=== PATIENT | male | born 1940 | race Caucasian/White ===

== ENCOUNTER 2024-12-09 11:41 | Emergency (ER) | payer MEDICARE ==
[2024-12-09 11:51] VITALS: TEMP 98
--- NOTE | 2024-12-09 12:28 | ED ---
Fall HPI - General Chief Complaint: Fall Stated Complaint: Fall, numbness in leg Time Seen by Provider: 12/09/24 12:22 Source: patient, RN notes reviewed Mode of arrival: ambulatory - History of Present Illness Initial Comments: 84-year-old male presenting for trip and fall 13 hours ago. States last night around 11 PM took his nighttime gummy and Tylenol PM and turn the lights off. He then accidentally tripped and fell onto the ground. States he did bump the back of his head on the ground. Denies loss of consciousness. He is on Plavix. States he got up and proceeded to take a shower after the fall. States he woke up this morning and is having soreness in the left knee and numbness/tingling in the left foot. He is able to ambulate. Denies headache, vision changes, nausea vomiting, neck pain, chest pain, shortness of breath, abdominal pain, back pain. - Related Data Allergies Allergy/AdvReac Type Severity Reaction Status Date / Time No Known Allergies Allergy Verified 12/09/24 11:51 Review of Systems ROS Statement: Those systems with pertinent positive or pertinent negative responses have been documented in the HPI. ROS Other: All systems not noted in ROS Statement are negative. Past Medical History Past Medical History: Hypertension History of Any Multi-Drug Resistant Organisms: None Reported Additional Past Surgical History / Comment(s): tripple bypass, Past Psychological History: No Psychological Hx Reported Smoking Status: Never smoker Past Alcohol Use History: Occasional Past Drug Use History: Marijuana General Exam Limitations: no limitations General appearance: alert, in no apparent distress Head exam: Present: normocephalic. Absent: atraumatic (Mild contusion to the posterior portion of the head, no hematomas or palpable skull fracture), normal inspection Eye exam: Present: normal appearance, PERRL, EOMI. Absent: scleral icterus, conjunctival injection, periorbital swelling ENT exam: Present: normal exam, mucous membranes moist Neck exam: Present: normal inspection. Absent: tenderness, meningismus, lymphadenopathy Respiratory exam: Present: normal lung sounds bilaterally. Absent: respiratory distress, wheezes, rales, rhonchi, stridor Cardiovascular Exam: Present: regular rate, normal rhythm, normal heart sounds. Absent: systolic murmur, diastolic murmur, rubs, gallop, clicks GI/Abdominal exam: Present: soft, normal bowel sounds. Absent: distended, tenderness, guarding, rebound, rigid Left Hip exam: Present: normal inspection, full ROM. Absent: tenderness, swelling Upper Leg exam: Present: normal inspection, full ROM. Absent: tenderness, swelling Knee exam: Present: normal inspection, full ROM. Absent: tenderness, swelling Lower Leg exam: Present: normal inspection, full ROM. Absent: tenderness, swelling Ankle exam: Present: normal inspection, full ROM. Absent: tenderness, swelling Foot/Toe exam: Present: normal inspection, full ROM. Absent: tenderness, swelling Neurovascular tendon exam: Present: no vascular compromise. Absent: pulse deficit, abnormal cap refill, sensory deficit Back exam: Present: normal inspection, full ROM. Absent: tenderness, paraspinal tenderness, vertebral tenderness Neurological exam: Present: alert, oriented X3 Psychiatric exam: Present: normal affect, normal mood Skin exam: Present: warm, dry, intact, normal color. Absent: rash Course Vital Signs 12/09/24 11:44 Temperature 98.0 F Pulse Rate 62 Respiratory 18 Rate Blood Pressure 144/55 O2 Sat by Pulse 98 Oximetry Medical Decision Making - Medical Decision Making Was pt. sent in by a medical professional or institution (, PA, PVC LOADER, urgent care, hospital, or senior care...) When possible be specific @ -No Did you speak to anyone other than the patient for history (EMS, parent, family, police, friend...)? What history was obtained from this source @ -No Did you review nursing and triage notes (agree or disagree)? Why? @ -I reviewed and agree with nursing and triage notes Were old charts reviewed (outside hosp., previous admission, EMS record, old EKG, old radiological studies, urgent care reports/EKG's, senior care records)? Report findings @ -No old charts were reviewed Differential Diagnosis (chest pain, altered mental status, abdominal pain women, abdominal pain men, vaginal bleeding, weakness, fever, dyspnea, syncope, headache, dizziness, GI bleed, back pain, seizure, CVA, palpatations, mental health, musculoskeletal)? @ -Differential Musculoskeletal Muscular strain, contusion, ligament sprain, fracture, arthritis, septic arthritis, bursitis, cellulitis, muscle spasm, nerve compression, DVT, arterial occlusion, herpes zoster, electrolyte abnormality, tumor.... This is not meant to be in all inclusive list EKG interpreted by me (3pts min.). @ -None X-rays interpreted by me (1pt min.). @ -X-ray left knee and left ankle reveal no acute osseous abnormality, chest x- ray reveals small bilateral pleural effusions CT interpreted by me (1pt min.). @ -CT brain and C-spine revealed no acute intracranial process U/S interpreted by me (1pt. min.). @ -None done What testing was considered but not performed or refused? (CT, X-rays, U/S, labs)? Why? @ -None What meds were considered but not given or refused? Why? @ -None Did you discuss the management of the patient with other professionals (professionals i.e. , PA, PVC LOADER, lab, RT, psych nurse, social secretary, welder production line combination, teacher, light armored vehicle officer, director of casework)? Give summary @ -I was contacted by CT who report they noticed a pleural effusion while taking CT brain and C-spine, chest x-ray was added on at this time Was smoking cessation discussed for >3mins.? @ -No Was critical care preformed (if so, how long)? @ -No Were there social determinants of health that impacted care today? How? (Homelessness, low income, unemployed, alcoholism, drug addiction, transportation, low edu. Level, literacy, decrease access to med. care, half-way, rehab)? @ -No Was there de-escalation of care discussed even if they declined (Discuss DNR or withdrawal of care, Hospice)? DNR status @ -No What co-morbidities impacted this encounter? (DM, HTN, Smoking, COPD, CAD, Cancer, CVA, ARF, Chemo, Hep., AIDS, mental health diagnosis, sleep apnea, morbid obesity)? @ -None Was patient admitted / discharged? Hospital course, mention meds given and route, prescriptions, significant lab abnormalities, going to OR and other pertinent info. @ -Discharge. 84-year-old male presenting for mechanical fall 13 hours ago with head injury. Denies loss of consciousness. He is on Plavix. Endorses left knee and left foot pain. Able to ambulate. Neurovascularly intact. No red flag symptoms. Neurological examination unremarkable. CT brain and C-spine shows no acute abnormality, x-ray left knee and left ankle shows no acute process. I was contacted by CT who reports they noticed a pleural effusion while taking CT brain and C-spine, chest x-ray was added on this time however patient denies any chest pain or shortness of breath. He did undergo open heart surgery 6 weeks ago at [facility]. Chest x-ray did show small bilateral pleural effusions. Discussed results with patient. Patient can be safely discharged home with appropriate return precautions. Advised to follow-up with his heart doctor tomorrow for follow-up regarding the pleural effusion. Patient is agreeable to plan. Case was discussed with my ED attending Dr. Aden. Undiagnosed new problem with uncertain prognosis? @ -No Drug Therapy requiring intensive monitoring for toxicity (Heparin, Nitro, Insulin, Cardizem)? @ -No Were any procedures done? @ -No Diagnosis/symptom? @ -Left knee strain, fall Acute, or Chronic, or Acute on Chronic? @ -Default Uncomplicated (without systemic symptoms) or Complicated (systemic symptoms)? @ -Default Side effects of treatment? @ -No Exacerbation, Progression, or Severe Exacerbation? @ -No Poses a threat to life or bodily function? How? (Chest pain, [place], [place], pneumonia, PE, COPD, DKA, ARF, appy, cholecystitis, CVA, Diverticulitis, Homicidal, Suicidal, threat to staff... and all critical care pts) @ -Not at this time Disposition Clinical Impression: Fall, Strain of left knee Disposition: HOME SELF-CARE Condition: Stable Instructions (If sedation given, give patient instructions): Fall Prevention for Older Adults (ED) Additional Instructions: Follow-up with your heart doctor tomorrow regarding pleural effusion (fluid on lung). Rest, elevate, and ice the left knee and ankle. Please return to the Emergency Department if symptoms worsen or any other concerns. Is patient prescribed a controlled substance at d/c from ED?: No Referrals: Chandrakant Sutton MD [Primary Care Provider] - 1-2 days Time of Disposition: 14:20
--- NOTE | 2024-12-09 13:53 | XR ---
EXAMINATION TYPE: XR chest 2V DATE OF EXAM: 12/09/2024 1:47 PM COMPARISON: None CLINICAL INDICATION: Male, 84 years old with history of cough; [facility] TECHNIQUE: XR chest 2V Frontal and lateral views of the chest. FINDINGS: Lungs/Pleura: No evidence of focal consolidation or pneumothorax. Blunting of the costophrenic angles is present. Pulmonary vascularity: Unremarkable. Heart/mediastinum: Cardiomediastinal silhouette is unremarkable. Musculoskeletal: No acute osseous pathology. IMPRESSION: Small bilateral pleural effusion. [facility], , 12/09/2024 1:51 PM
--- NOTE | 2024-12-09 13:56 | CT ---
EXAMINATION TYPE: CT brain cspine wo con DATE OF EXAM: 12/09/2024 1:37 PM COMPARISON: None. CLINICAL INDICATION: Male, 84 years old with history of pain; FELL LAST NIGHT, pain TECHNIQUE: Brain: Multiple axial CT images of the brain were obtained without IV contrast. Cspine: Axial CT images from the skull base to the inferior aspect of T2 we obtained without intraven ous contrast. Coronal and sagittal reformatted images were also reviewed. . CT DLP: 1446 mGycm, Automated exposure control for dose reduction was used. FINDINGS: Brain: Extra-axial spaces: No abnormal extra-axial fluid collections. Ventricular system: Dilatation in proportion to cerebral atrophy. Cerebral parenchyma: Cerebral atrophy. No acute intraparenchymal hemorrhage or mass effect. The noriega -white junction is well differentiated. Scattered hypoattenuating areas are seen within the white mat ter. Cerebellum: Unremarkable. Mass effect: No evidence of midline shift. Intracranial vasculature: Atherosclerotic calcifications of the intracranial vessels. Soft tissues: Normal. Calvarium/osseous structures: No depressed skull fracture. Paranasal sinuses and mastoid air cells: Few opacified left mastoid air cells. Mild paranasal sinus d isease worse in the left maxillary sinus with retention cyst. Visualized orbits: Bilateral aphakia Cervical spine: Fracture: None. Osseous structures: Unremarkable Vertebral alignment: Within normal limits. Spinal canal/Neural Foramina: No evidence of significant spinal canal narrowing. No evidence for sign ificant neural foraminal stenosis. Neck soft tissues: Prevertebral soft tissues are within normal limits. Other: The airway is patent. Large left pleural effusion. IMPRESSION: 1. No acute intracranial process. 2. Nonspecific white matter changes, likely secondary to chronic small vessel ischemic disease. 3. No evidence of cervical spine fracture. 4. Mild multilevel degenerative disc disease. 5. Large left pleural effusion. 6. Trace left mastoid air cell effusion. [facility], , 12/09/2024 1:54 PM
--- NOTE | 2024-12-09 14:01 | XR ---
EXAMINATION TYPE: XR foot complete LT DATE OF EXAM: 12/09/2024 1:46 PM COMPARISON: None CLINICAL INDICATION: Male, 84 years old with history of left foot injury, pain TECHNIQUE: XR foot complete LT examined in the AP, oblique, and lateral projections. FINDINGS: No evidence of any acute osseous pathology. Degeneration changes of the first digit metatarsophalang eal joint with mild joint space narrowing and osteophyte formation. Soft tissue swelling present. Fusion of the first digit tarsometatarsal joint. Additional fixation hardware appears intact. IMPRESSION: 1. No evidence of acute fracture. 2. Multifocal degeneration changes throughout the joints of the foot. Findings worse at the first di git metatarsophalangeal joint. 3. Post surgical changes with hardware intact. Fusion of the first digit tarsometatarsal joint. [facility], , 12/09/2024 1:59 PM
--- NOTE | 2024-12-09 14:02 | XR ---
EXAMINATION TYPE: XR knee complete LT DATE OF EXAM: 12/09/2024 1:46 PM COMPARISON: None CLINICAL INDICATION: Male, 84 years old with history of left knee injury;, pain TECHNIQUE: XR knee complete LT 3 views submitted. FINDINGS: No evidence of any acute osseous pathology or soft tissue swelling. Tricompartmental oste ophyte formation involving the femoral condyles, tibial plateau and patella. Mild joint space narrowi ng. A fabella is present. Intramedullary priscilla within the tibia appears intact. Prior tibial fracture appears completely healed. I discussed the arterial vasculature. IMPRESSION: 1. No acute osseous pathology. 2. Moderate tricompartmental osteoarthritic changes. 3. Intramedullary priscilla appears intact. 4. Old fibular fracture. [facility], , 12/09/2024 2:00 PM
[2024-12-09 14:47] VITALS: BP 150/69; PULSE 60; RESP 20
== END 2024-12-09 14:47 | disposition home or self-care (01) ==
LOC: EC 11:41
DX: S86.912A Strain of unspecified muscle(s) and tendon(s) at lower leg level, left leg, initial encounter (principal); W01.0XXA Fall on same level from slipping, tripping and stumbling without subsequent striking against object, initial encounter
CPT/HCPCS: 70450; 71046; 72125; 99284

== ENCOUNTER 2024-12-09 19:32 | Inpatient (IN) | payer MEDICARE ==
[2024-12-09] MEDS: DOPamine DRIP 800 MG in DEXTROSE/WATER 1 250ML.BAG IV ONE (19:55)
--- NOTE | 2024-12-09 19:56 | ED ---
Syncope HPI - General Chief Complaint: Syncope Stated Complaint: Syncope Time Seen by Provider: 12/09/24 19:36 Source: EMS, RN notes reviewed, old records reviewed Mode of arrival: EMS Limitations: no limitations - History of Present Illness Initial Comments: This is an 84-year-old male with recurrent syncope here in the ER. Patient has having prolonged periods of asystole during which he passes out. This has happened multiple times first with the at dinner where he passed out brought to the ER EMS states he was doing this throughout and I have not witnessed it twice here myself. Complaint: loss of consciousness, collapsed -: hour(s) -: second(s) Witnessed: yes - by bystander, yes - by EMS History: previous syncopal episode Context: at rest Treatments Prior to Arrival: none - Related Data Home Medications Medication Instructions Recorded Confirmed Clopidogrel [Plavix] 75 mg PO DAILY 12/09/24 12/10/24 Rosuvastatin [Crestor] 20 mg PO HS 12/09/24 12/10/24 Aspirin EC [Ecotrin Low Dose] 81 mg PO HS 12/10/24 12/10/24 Finasteride [Proscar] 5 mg PO HS 12/10/24 12/10/24 Previous Rx's Medication Instructions Recorded Colchicine [Colcrys] 0.6 mg PO DAILY 30 Days #30 each 12/15/24 Furosemide [Lasix] 40 mg PO DAILY 7 Days #7 tab 12/15/24 Potassium Chloride ER [K-Dur 10] 10 meq PO DAILY 7 Days #7 tab 12/15/24 Tamsulosin [Flomax] 0.4 mg PO PC-SUPPER cap 12/15/24 carvediloL [Coreg] 6.25 mg PO BID-W/MEALS 30 Days #60 12/15/24 tab lisinopriL [Zestril] 20 mg PO DAILY 30 Days #30 tab 12/15/24 Allergies Allergy/AdvReac Type Severity Reaction Status Date / Time No Known Allergies Allergy Verified 12/10/24 11:08 Review of Systems ROS Statement: Those systems with pertinent positive or pertinent negative responses have been documented in the HPI. ROS Other: All systems not noted in ROS Statement are negative. Past Medical History Past Medical History: Hypertension History of Any Multi-Drug Resistant Organisms: None Reported Additional Past Surgical History / Comment(s): tripple bypass, Past Psychological History: No Psychological Hx Reported Smoking Status: Never smoker Past Alcohol Use History: Occasional Past Drug Use History: Marijuana General Exam Limitations: no limitations General appearance: alert, in no apparent distress, anxious, in distress Head exam: Present: atraumatic, normocephalic, normal inspection Eye exam: Present: normal appearance, PERRL, EOMI. Absent: scleral icterus, conjunctival injection, periorbital swelling ENT exam: Present: normal exam, mucous membranes moist Neck exam: Present: normal inspection. Absent: tenderness, meningismus, lymphadenopathy Respiratory exam: Present: normal lung sounds bilaterally. Absent: respiratory distress, wheezes, rales, rhonchi, stridor Cardiovascular Exam: Present: regular rate, normal rhythm, normal heart sounds. Absent: systolic murmur, diastolic murmur, rubs, gallop, clicks GI/Abdominal exam: Present: soft, normal bowel sounds. Absent: distended, t enderness, guarding, rebound, rigid Extremities exam: Present: normal inspection, full ROM, normal capillary refill. Absent: tenderness, pedal edema, joint swelling, calf tenderness Back exam: Present: normal inspection Neurological exam: Present: alert, oriented X3, CN II-XII intact Psychiatric exam: Present: normal affect, normal mood Skin exam: Present: warm, dry, intact, normal color. Absent: rash Course Vital Signs 12/09/24 12/09/24 12/09/24 20:05 20:20 20:35 Pulse Rate 93 Pulse Rate [ 72 60 Medical Affairs Manager ] Respiratory 18 18 16 Rate Blood Pressure 151/65 Blood Pressure 152/57 140/47 [Right Arm Supine] O2 Sat by Pulse 97 96 97 Oximetry 12/09/24 12/09/24 12/09/24 20:48 21:05 21:20 Pulse Rate Pulse Rate [ 32 L 66 72 Medical Affairs Manager ] Respiratory 14 16 18 Rate Blood Pressure Blood Pressure 135/54 169/53 156/51 [Right Arm Supine] O2 Sat by Pulse 96 97 94 L Oximetry - Reevaluation(s) Reevaluation #1: Medical records reviewed Reevaluation #2: Patient's symptoms are unchanged, no recurrent syncope no chest pain Reevaluation #3: Patient informed of results questions answered Reevaluation #4: Was pt. sent in by a medical professional or institution (, PA, [facility], urgent care, hospital, or senior care...) When possible be specific @ -no Did you speak to anyone other than the patient for history (EMS, parent, family, police, friend...)? What history was obtained from this source @ -no Did you review nursing and triage notes (agree or disagree)? Why? @ -agree Are old charts reviewed (outside hosp., previous admission, EMS record, old EKG, old radiological studies, urgent care reports/EKG's, senior care records)? Report findings @ -yes Differential Diagnosis (chest pain, altered mental status, abdominal pain women, abdominal pain men, vaginal bleeding, weakness, fever, dyspnea, syncope, headache, dizziness, GI bleed, back pain, seizure, CVA, palpatations, mental health, musculoskeletal)? @ -prior EKG interpreted by me (3pts min.). @ -yes X-rays interpreted by me (1pt min.). @ -no CT interpreted by me (1pt min.). @ -no U/S interpreted by me (1pt. min.). @ -no What testing was considered but not performed or refused? (CT, X-rays, U/S, labs)? Why? @ -none What meds were considered but not given or refused? Why? @ -none Did you discuss the management of the patient with other professionals (professionals i.e. , PA, [employer], lab, RT, psych nurse, family welfare social work professor, rough rounder, teacher, patient safety officer, lining caser)? Give summary @ -no Was smoking cessation discussed for >3mins.? @ -no Was critical care preformed (if so, how long)? @ -yes31 Were there social determinants of health that impacted care today? How? (Homelessness, low income, unemployed, alcoholism, drug addiction, transportation, low edu. Level, literacy, decrease access to med. care, residential, rehab)? @ -none Was there de-escalation of care discussed even if they declined (Discuss DNR or withdrawal of care, Hospice)? DNR status @ -no What co-morbidities impacted this encounter? (DM, HTN, Smoking, COPD, CAD, Cancer, CVA, ARF, Chemo, Hep., AIDS, mental health diagnosis, sleep apnea, morbid obesity)? @ -none Was patient admitted / discharged? Hospital course, mention meds given and route, prescriptions, significant lab abnormalities, going to OR and other pertinent info. @ -84 male to ER for evaluation with syncopal event heart block here in the ER with recurrent rounds of a asystole. Patient admitted for cardiac pacemaker placement Admitted Drug Therapy requiring intensive monitoring for toxicity (Heparin, Nitro, Insulin, Cardizem)? @ -no Were any procedures done? @ -no Diagnosis/symptom? @ -Asystole and syncope Acute, or Chronic, or Acute on Chronic? @ -Acute Uncomplicated (without systemic symptoms) or Complicated (systemic symptoms)? @ -Complicated Side effects of treatment? @ -no Exacerbation, Progression, or Severe Exacerbation? @ -exacerbation Poses a threat to life or bodily function? How? (Chest pain, [place], [place], pneumonia, PE, COPD, DKA, ARF, appy, cholecystitis, CVA, Diverticulitis, Homicidal, Suicidal, threat to staff... and all critical care pts) @ -yes heart block Reevaluation #5: Differential Syncope: Valvular disease, hypertrophic cardiomyopathy, pulmonary embolism, tamponade, tachycardia, bradycardia, [place], hypovolemia, hemorrhage, dissection, anemia, intracranial hemorrhage, seizure, hypoglycemia, carbon monoxide poisoning, this is not meant to be an all-inclusive list. - Consultations Consultation #1: Spoke with admitting physicians who agreed to admit this patient EKG Findings - EKG Comments: EKG Findings:: EKG sinus bradycardia 48 OH 225 QRS 132 QTc 515 - EKG Results: EKG: interpreted by [facility] Medical Decision Making - Lab Data Result diagrams: 12/14/24 07:45 12/14/24 07:45 Lab Results 12/09/24 12/09/24 12/09/24 Range/Units 20:05 20:05 20:05 WBC 10.82 H (4.50-10.00) 10*3/uL RBC 3.51 L (4.40-5.60) 10*6/uL Hgb 11.6 L (13.0-17.0) g/dL Hct 35.1 L (39.6-50.0) % MCV 100.0 H (80.0-97.0) fL MCH 33.0 H (27.0-32.0) pg MCHC 33.0 (32.0-37.0) g/dL Plt Count 159 (140-440) 10*3/uL MPV 10.0 (9.5-12.2) fL Immature Gran % (Auto) 0.3 % Neutrophils % 73.8 % Lymphocytes % 15.9 % Monocytes % 9.2 % Eosinophils % 0.4 % Basophils % 0.4 % Immature Gran # 0.03 (0.00-0.04) 10*3/uL Neutrophils # 7.99 H (1.80-7.70) 10*3/uL Lymphocytes # 1.72 (0.90-5.00) 10*3/uL Monocytes # 1.00 (0.20-1.00) 10*3/uL Eosinophils # 0.04 (0.04-0.35) 10*3/uL Basophils # 0.04 (0.00-0.10) 10*3/uL PT 12.4 (10.0-12.5) sec INR 1.1 (<1.2) APTT 22.1 (22.0-30.0) sec Sodium 141 (137-145) mmol/L Potassium 4.1 (3.5-5.1) mmol/L Chloride 113 H (98-107) mmol/L Carbon Dioxide 18 L (22-30) mmol/L Anion Gap 10 mmol/L BUN 24 H (9-20) mg/dL Creatinine 1.03 (0.66-1.25) mg/dL Est GFR (CKD-EPI)AfAm 77 (>60 ml/min/1.73 sqM) Est GFR (CKD-EPI)NonAf 66 (>60 ml/min/1.73 sqM) Glucose 173 H (74-99) mg/dL Lactic Ac Sepsis Rflx Plasma Lactic Acid Ramos (0.7-2.0) mmol/L Calcium 11.6 H (8.4-10.2) mg/dL Phosphorus 3.7 (2.5-4.5) mg/dL Magnesium 1.9 (1.6-2.3) mg/dL Total Bilirubin 0.9 (0.2-1.3) mg/dL AST 31 (17-59) U/L ALT 28 (4-49) U/L Alkaline Phosphatase 69 (38-126) U/L Troponin I (0.000-0.034) ng/mL NT-Pro-B Natriuret Pep 4030 pg/mL Total Protein 5.5 L (6.3-8.2) g/dL Albumin 3.3 L (3.5-5.0) g/dL TSH 2.440 (0.465-4.680) mIU/L 12/09/24 12/09/24 12/09/24 Range/Units 20:05 20:05 20:46 WBC (4.50-10.00) 10*3/uL RBC (4.40-5.60) 10*6/uL Hgb (13.0-17.0) g/dL Hct (39.6-50.0) % MCV (80.0-97.0) fL MCH (27.0-32.0) pg MCHC (32.0-37.0) g/dL Plt Count (140-440) 10*3/uL MPV (9.5-12.2) fL Immature Gran % (Auto) % Neutrophils % % Lymphocytes % % Monocytes % % Eosinophils % % Basophils % % Immature Gran # (0.00-0.04) 10*3/uL Neutrophils # (1.80-7.70) 10*3/uL Lymphocytes # (0.90-5.00) 10*3/uL Monocytes # (0.20-1.00) 10*3/uL Eosinophils # (0.04-0.35) 10*3/uL Basophils # (0.00-0.10) 10*3/uL PT (10.0-12.5) sec INR (<1.2) APTT (22.0-30.0) sec Sodium (137-145) mmol/L Potassium (3.5-5.1) mmol/L Chloride (98-107) mmol/L Carbon Dioxide (22-30) mmol/L Anion Gap mmol/L BUN (9-20) mg/dL Creatinine (0.66-1.25) mg/dL Est GFR (CKD-EPI)AfAm (>60 ml/min/1.73 sqM) Est GFR (CKD-EPI)NonAf (>60 ml/min/1.73 sqM) Glucose (74-99) mg/dL Lactic Ac Sepsis Rflx Y Plasma Lactic Acid Ramos 4.8 H* (0.7-2.0) mmol/L Calcium (8.4-10.2) mg/dL Phosphorus (2.5-4.5) mg/dL Magnesium (1.6-2.3) mg/dL Total Bilirubin (0.2-1.3) mg/dL AST (17-59) U/L ALT (4-49) U/L Alkaline Phosphatase (38-126) U/L Troponin I 0.253 H* (0.000-0.034) ng/mL NT-Pro-B Natriuret Pep pg/mL Total Protein (6.3-8.2) g/dL Albumin (3.5-5.0) g/dL TSH (0.465-4.680) mIU/L - EKG Data -: EKG Interpreted by Me Critical Care Time Critical Care Time: Yes Total Critical Care Time: 31 Disposition Clinical Impression: NSTEMI (non-ST elevated myocardial infarction), Syncope, Asystole Disposition: ADMITTED IP TO THIS HOSP Condition: Fair Is patient prescribed a controlled substance at d/c from ED?: No Time of Disposition: 21:00
[2024-12-09] MEDS: CALCIUM CHLORIDE 100 MG/ML 10 ML SYRINGE IVP STA (19:57)
[2024-12-09] MEDS: SODIUM CHLORIDE 0.9% 1,000 ML IV SCH ×2 (20:11→23:33)
[2024-12-09] MEDS: ATROPINE SULFATE 0.1 MG/ML 10ML SYRINGE IV STA ×3 (20:15→20:48)
[2024-12-09 20:19] LABS: Basophils # (A) 0.04 10*3/uL (0.00-0.10); Basophils % (A) 0.4 %; Eosinophils # (A) 0.04 10*3/uL (0.04-0.35); Eosinophils % (A) 0.4 %; HCT 35.1 % (39.6-50.0); HGB 11.6 g/dL (13.0-17.0); Lymphocytes # (A) 1.72 10*3/uL (0.90-5.00); Lymphocytes % (A) 15.9 %; MCH 33.0 pg (27.0-32.0); MCHC 33.0 g/dL (32.0-37.0); MCV 100.0 fL (80.0-97.0); Monocytes # (A) 1.00 10*3/uL (0.20-1.00); Monocytes % (A) 9.2 %; Neutrophils # (A) 7.99 10*3/uL (1.80-7.70); Neutrophils % (A) 73.8 %; Platelet Count 159 10*3/uL (140-440); RBC 3.51 10*6/uL (4.40-5.60); RDW 14.3 % (11.5-14.5); WBC 10.82 10*3/uL (4.50-10.00)
[2024-12-09] MEDS: CALCIUM GLUCONATE IN NACL 2 GM in SALINE 1 100ML.BAG IVPB ONE (20:19)
[2024-12-09 20:42] LABS: INR 1.1 (<1.2); Partial Thromboplastin Time 22.1 sec (22.0-30.0); Prothrombin Time 12.4 sec (10.0-12.5)
[2024-12-09 20:47] LABS: ALT 28 U/L (4-49); AST 31 U/L (17-59); African American GFR (CKD) 77 (>60 ml/min/1.73 sqM); Albumin 3.3 g/dL (3.5-5.0); Alkaline Phosphatase 69 U/L (38-126); Anion Gap 10 mmol/L; Blood Urea Nitrogen 24 mg/dL (9-20); Calcium 11.6 mg/dL (8.4-10.2); Carbon Dioxide 18 mmol/L (22-30); Chloride 113 mmol/L (98-107); Glucose 173 mg/dL (74-99); Magnesium 1.9 mg/dL (1.6-2.3); Non-African American GFR(CKD) 66 (>60 ml/min/1.73 sqM); Potassium 4.1 mmol/L (3.5-5.1); Sodium 141 mmol/L (137-145); Total Protein 5.5 g/dL (6.3-8.2)
[2024-12-09 20:54] LABS: NT-Pro-B-Type Natriuretic Pept 4030 pg/mL
[2024-12-09] MEDS ORDERED: NALOXONE 0.4 MG/ML 1 ML VIAL IV PRN (21:13)
[2024-12-09] MEDS: MIDAZOLAM 2 MG/2 ML VIAL IVP ONE (21:57)
[2024-12-09] MEDS: fentaNYL (PF) 50 MCG/1 ML VIAL IVP ONE (21:57)
[2024-12-09] MEDS: LIDOCAINE 1% INJ 10MG/ML (20 ML MDV) SQ ONE (21:59)
[2024-12-09] MEDS: SODIUM CHLORIDE 0.9% 1,000 ML IV ONE (22:00)
[2024-12-09] MEDS: VERAPAMIL SYRINGE (5 MG/10 ML) INTRAARTER ONE (22:13)
[2024-12-09] MEDS: HEPARIN SODIUM 1,000 UN/ML (10ML VL) IVP ONE (22:15)
[2024-12-09] MEDS: ASPIRIN 325 MG TAB PO ONE (22:15)
[2024-12-09] MEDS: IOPAMIDOL-370 100ML BTL INJ ONE ×2 (22:26→22:36)
[2024-12-09] MEDS: HEPARIN SODIUM,PORCINE (1 ML) 2,500 UNIT in SODIUM CHLORIDE 0.9% 250 ML IRRIGATION ONE (22:37)
[2024-12-09] MEDS: HEPARIN SODIUM,PORCINE 10,000 UNIT in SODIUM CHLORIDE 0.9% 1,000 ML IRRIGATION ONE (22:37)
--- NOTE | 2024-12-09 22:51 | P.CRDCN ---
History of Present Illness History of present illness: HISTORY OF PRESENTING ILLNESS This is a pleasant 84-year-old with past medical history significant for hypertension, ascending aortic dilation, skin cancer and CAD status post three- vessel CABG 10/25/2024 who presents secondary to syncopal episode. Patient follows with Dr. Lindsey at [facility]. He was evaluated with findings on CTA of triple-vessel disease and eventually underwent heart catheterization showing SUPERVIS[employer] BURLING [employer] JOINING of the RCA with collaterals as well as left main trifurcation disease. Intravascular ultrasound was performed which showed calcified left main with inability to pass catheter. Readout of 50 to 60% left main stenosis and otherwise 70% ostial calcified ramus, 90% ostial circumflex and ostial LAD 50% stenosis. He underwent SVG to PDA and SVG to ramus as well as GOMES to LAD 10/25/2024 which was fairly uneventful other than some postoperative atrial fibrillation. Patient initially presented 12/09/2024 at approximately noon secondary to a mechanical fall. He denied any actual loss of consciousness. He has had some numbness in his left leg. He was discharged home and then went to lunch and had a syncopal episode while seated where he became unresponsive. He was brought to the emergency department and found to have intermittent complete heart block with pauses up to 10 seconds with loss of consciousness witnessed by ER doctor. He denies any chest pain or pressure. He was started on a dopamine drip and did develop some nausea and vomiting. Denies any actual jaw pain or abdominal pain or diaphoresis. He had no real symptoms during his initial workup for his CAD. EKG with right bundle branch block with repeat EKG and catheterization lab showing deep T wave inversions in the inferior leads. White blood cell count 10.8, hemoglobin 11.6, creatinine 1.0, lactic acid 4.8, troponin 0.25. REVIEW OF SYSTEMS At the time of my exam: CONSTITUTIONAL: Denies fever or chills. CARDIOVASCULAR: Denies chest pain, shortness of breath, orthopnea, PND or palpitations. RESPIRATORY: Denies cough. GASTROINTESTINAL: Denies abdominal pain, diarrhea, constipation, +nausea,+ vomiting. MUSCULOSKELETAL: Denies myalgias. NEUROLOGIC: Denies numbness, tingling or weakness. ENDOCRINE: Denies fatigue, weight change, polydipsia or polyurina. GENITOURINARY: Denies burning, hematuria or urgency with micturation. HEMATOLOGIC: Denies history of anemia or bleeding. PHYSICAL EXAMINATION Vital signs reviewed. CONSTITUTIONAL: No apparent distress. HEENT: Head is normocephalic. Pupils are equal, round. Sclerae anicteric. Mucous membranes of the mouth are moist. No JVD. No carotid bruit. CHEST EXAMINATION: Lungs are clear to auscultation. No chest wall tenderness is noted on palpation or with deep breathing. HEART EXAMINATION: Regular rate and rhythm. S1, S2 heard. No murmurs, gallops or rub. ABDOMEN: Soft, nontender. Positive bowel sounds. EXTREMITIES: 2+ peripheral pulses, no lower extremity edema and no calf tenderness. NEUROLOGIC EXAMINATION: Patient is awake, alert and oriented x3. ASSESSMENT Syncope Third-degree heart block intermittently with witnessed NSTEMI likely type II mechanism however having some nausea and worsening T wave inversions CAD status post CABG 10/2024 Hypertension Postoperative A-fib PLAN Patient's main presentation of syncope related to third-degree heart block. Recommended TVP with likely need for permanent pacemaker. Patient not having obvious angina type symptoms however having some nausea and some worsened T wave inversions and therefore we will proceed with left heart catheterization as well. Check 2D echo. Patient needs metoprolol for his underlying CAD and does not explain his prolonged third-degree heart block. Check TSH for completeness sake. Past Medical History Past Medical History: Hypertension History of Any Multi-Drug Resistant Organisms: None Reported Additional Past Surgical History / Comment(s): tripple bypass, Past Psychological History: No Psychological Hx Reported Smoking Status: Never smoker Past Alcohol Use History: Occasional Past Drug Use History: Marijuana Medications and Allergies Home Medications Medication Instructions Recorded Confirmed Type Clopidogrel [Plavix] 75 mg PO DAILY 12/09/24 12/09/24 History Metoprolol Tartrate [Lopressor] 25 mg PO BID 12/09/24 12/09/24 History Rosuvastatin [Crestor] 20 mg PO ONCE 12/09/24 12/09/24 History lisinopriL [Zestril] 10 mg PO DAILY 12/09/24 12/09/24 History Allergies Allergy/AdvReac Type Severity Reaction Status Date / Time No Known Allergies Allergy Verified 12/09/24 11:51 Physical Exam Vitals: Vital Signs Pulse Pulse Resp BP BP Pulse Ox 12/09/24 21:20 72 18 156/51 94 L 12/09/24 21:05 66 16 169/53 97 12/09/24 20:48 32 L 14 135/54 96 12/09/24 20:35 60 16 140/47 97 12/09/24 20:20 72 18 152/57 96 12/09/24 20:05 93 18 151/65 97 Intake and Output 12/09/24 12/09/24 12/09/24 06:59 14:59 22:59 Intake Total 101.712 Balance 101.712 Intake: IV 100 Intake, IV Titration 1.712 Amount DOPamine DRIP 800 mg In 1.712 Dextrose/Water 1 250ml. bag @ 1 MCG/KG/MIN 1.276 mls/hr IV .Q24H ONE Rx#: [id number] Other: Weight 68.039 kg Results 12/09/24 20:05 12/09/24 20:05 Cardiac Enzymes 12/09/24 12/09/24 Range/Units 20:05 20:05 AST 31 (17-59) U/L Troponin I 0.253 H* (0.000-0.034) ng/mL Coagulation 12/09/24 Range/Units 20:05 PT 12.4 (10.0-12.5) sec APTT 22.1 (22.0-30.0) sec CBC 12/09/24 Range/Units 20:05 WBC 10.82 H (4.50-10.00) 10*3/uL RBC 3.51 L (4.40-5.60) 10*6/uL Hgb 11.6 L (13.0-17.0) g/dL Hct 35.1 L (39.6-50.0) % Plt Count 159 (140-440) 10*3/uL Comprehensive Metabolic Panel 12/09/24 Range/Units 20:05 Sodium 141 (137-145) mmol/L Potassium 4.1 (3.5-5.1) mmol/L Chloride 113 H (98-107) mmol/L Carbon Dioxide 18 L (22-30) mmol/L BUN 24 H (9-20) mg/dL Creatinine 1.03 (0.66-1.25) mg/dL Glucose 173 H (74-99) mg/dL Calcium 11.6 H (8.4-10.2) mg/dL AST 31 (17-59) U/L ALT 28 (4-49) U/L Alkaline Phosphatase 69 (38-126) U/L Total Protein 5.5 L (6.3-8.2) g/dL Albumin 3.3 L (3.5-5.0) g/dL Current Medications Generic Name Dose Route Start Last Admin Trade Name Freq PRN Reason Stop Dose Admin Sodium Chloride 1,000 mls @ 130 mls/hr 12/09/24 20:00 12/09/24 20:11 Saline 0.9% IV 130 mls/hr .[id number] KELLEE Administration Dopamine HCl/Dextrose 800 mg/ 250 mls @ 1.276 mls/hr 12/09/24 19:47 12/09/24 20:48 IV Solution IV 12/10/24 19:46 5 mcg/kg/min .Q24H ONE 6.379 mls/hr Titration Protocol 1 MCG/KG/MIN Morphine Sulfate 4 mg 12/09/24 21:13 Morphine Sulfate 4 Mg/Ml Syringe IV Q4HR PRN Severe Pain (Scale 7 to 10) Naloxone HCl 0.2 mg 12/09/24 21:13 Naloxone 0.4 Mg/Ml 1 Ml Vial IV Q2M PRN Opioid Reversal Ondansetron HCl 4 mg 12/09/24 21:13 Ondansetron 4 Mg/2 Ml Vial IVP Q8HR PRN Nausea And Vomiting Intake and Output 12/09/24 12/09/24 12/09/24 06:59 14:59 22:59 Intake Total 101.712 Balance 101.712 Intake: IV 100 Intake, IV Titration 1.712 Amount DOPamine DRIP 800 mg In 1.712 Dextrose/Water 1 250ml. bag @ 1 MCG/KG/MIN 1.276 mls/hr IV .Q24H ONE Rx#: [id number] Other: Weight 68.039 kg Patient Weight 12/10/24 06:59 Weight 68.039 kg 12/09/24 20:05 12/09/24 20:05
[2024-12-09 23:08] LABS: Glucose,Whole Blood 151 mg/dL (70-110)
[2024-12-09] MEDS ORDERED: RX INFO: IV CONTRAST WAS GIVEN 1 EACH MISC MISCELLANE PRN (23:08)
--- NOTE | 2024-12-09 23:08 | P.CARDCATH ---
Description of Procedure: PROCEDURES PERFORMED: Left heart catheterization, bilateral coronary angiography, ultrasound guided arterial access, GOMES to LAD angiography, SVG to ramus, SVG to PDA angiography, TVP pacemaker placement INDICATION: Non-STEMI, complete heart block CONSENT:I have discussed the risks, benefits and alternative therapies for the above-mentioned procedure and for both sedation/analgesia as well as necessary blood product administration, if indicated, as they pertain to this patient. The patient has indicated understanding and acceptance of the risks and procedures discussed. PROCEDURE: After the risks, benefits and alternatives of the above mentioned procedure explained in detail with the patient, informed consent was obtained. Patient was taken to the catheterization lab and prepped and draped in usual fashion. Ultrasound guidance was used to assess for arterial access. 1% lidocaine was used to anesthetize the right femoral area. Using ultrasound guidance, right femoral venous access was obtained and a 6 Mauritian sheath was placed. A 5 Mauritian TVP catheter was placed in the apical right ventricle and pacing thresholds were checked and deemed appropriate. This was sutured in place. 1% lidocaine was used to anesthetize the left radial artery. A 6-Mauritian sheath was placed in the left radial artery using modified Seldinger technique and ultrasound guidance. Left coronary angiography was performed with a 6- Mauritian JL 4.5 catheter and right coronary angiography was performed with a 5- Mauritian FR4 catheter in various views. A 5-Mauritian FR4 catheter was inserted into the left ventricle and pressure measurements were obtained. GOMES to LAD angiography was performed with a 5 Mauritian FR4 catheter and SVG to PDA ang iography was performed with a 5 Mauritian FR4 catheter and SVG to the ramus was performed with a 6 Mauritian AL-1 catheter. The left radial sheath was removed and a TR band was placed with hemostasis achieved. The patient tolerated the procedure well. Patient was transported back to the post catheterization holding area in stable condition. Conscious Sedation: Patient was monitored under the direct supervision of myself for conscious sedation using Versed and fentanyl for a total duration of 34 minutes HEMODYNAMICS: Aorta: 142/47 LV: 141/8, LVEDP 14 SELECTIVE CORONARY ARTERIOGRAPHY: LEFT MAIN: The left main is a large caliber vessel which trifurcates into the LAD, ramus and circumflex. There is distal left main 80 to 90% stenosis. LEFT ANTERIOR DESCENDING CORONARY ARTERY: LAD is a large caliber vessel which wraps around to the apex. There is ostial LAD 90% stenosis and otherwise mild 10 to 20% stenosis. Ramus intermedius: Ramus intermedius is a small to moderate caliber vessel with ostial 80% stenosis and otherwise mild luminal irregularities. LEFT CIRCUMFLEX CORONARY ARTERY: Left circumflex is a moderate caliber vessel with ostial 90% stenosis. RIGHT CORONARY ARTERY: The right coronary artery is a large caliber vessel which gives off a PDA and PLV branch and is the dominant vessel. There is 100% mid RCA stenosis. Mid LAD: Widely patent SVG to ramus: Widely patent SVG to PDA: Widely patent FINAL IMPRESSION: 1. [place] CAD as described above including distal left main 80 to 90%, ostial LAD 90%, ostial ramus 80%, ostial circumflex 90%, 100% mid RCA stenosis 2. Normal left sided filling pressures 3. Patent 3 of 3 bypasses with GOMES to LAD, SVG to ramus, SVG to PDA 4. Intermittent complete heart block noted throughout procedure status post TVP placement PLAN: 1. Aggressive risk factor modification per most recent ACC/AHA guidelines. 2. Evaluate for permanent pacemaker placement
[2024-12-10] MEDS: diphenhydrAMINE 25 MG CAP PO STA (01:56)
--- NOTE | 2024-12-10 03:29 | P.HPIM ---
History of Present Illness H&P Date: 12/09/24 Chief Complaint: Syncope episodes and intermittent complete heart block Patient is an 84-year-old male with a history of hypertension and coronary artery disease who presented to the hospital with syncope episodes. Patient initially had a mechanical fall at noon without loss of consciousness. After evaluation and discharge from the ED, patient experienced another syncope e pisode while sitting at lunch, becoming unresponsive. Upon return to the ED, patient was found to have intermittent complete heart block with pauses up to 10 seconds. Patient denied associated chest pain during these episodes. Patient was started on a dopamine drip and taken to the rn cardiac cath where left heart catheterization showed patent three-vessel bypass. Recommendations were made for permanent pacemaker placement. Status post three-vessel coronary artery bypass graft (CABG) in October 2024 PMHx 1. Hypertension 2. Coronary artery disease (CAD) 3. Ascending aortic dilation 4. Skin cancer 5. Status post three-vessel coronary artery bypass graft (CABG) in October 2024 review of systems Pertinent positives as noted in HPI. All other systems were reviewed and are negative on exam Constitutional: No acute distress, conversant, pleasant General: Patient appears pleasant, relaxed, no acute distress HEENT: Pupils equal, round, reactive to light and accommodation. No scleral icterus. Chest: Clear to auscultation bilaterally, no wheezing or rales Cardiovascular: Regular rate and rhythm, normal S1 and S2, no murmurs or rubs Abdomen: Soft, lax, non-tender, positive bowel sounds Extremities: Peripheral pulses palpable and equal in bilateral radial and dorsalis pedis arteries. No leg edema, no calf muscle tenderness. Neurologic: Non-focal, strength 5/5 throughout, sensation to light touch grossly intact Psychiatric: Alert, oriented to place, person, time, and situation. Fair judgment. Past Medical History Past Medical History: Hypertension, Prostate Disorder History of Any Multi-Drug Resistant Organisms: None Reported Additional Past Surgical History / Comment(s): Open Heart [place] 10/25/24. Melanoma removal Past Psychological History: No Psychological Hx Reported Smoking Status: Former smoker Past Alcohol Use History: Occasional Past Drug Use History: Marijuana Medications and Allergies Home Medications Medication Instructions Recorded Confirmed Type Clopidogrel [Plavix] 75 mg PO DAILY 12/09/24 12/09/24 History Metoprolol Tartrate [Lopressor] 25 mg PO BID 12/09/24 12/09/24 History Rosuvastatin [Crestor] 20 mg PO ONCE 12/09/24 12/09/24 History lisinopriL [Zestril] 10 mg PO DAILY 12/09/24 12/09/24 History Allergies Allergy/AdvReac Type Severity Reaction Status Date / Time No Known Allergies Allergy Verified 12/09/24 11:51 Physical Exam Vitals: Vital Signs Temp Pulse Pulse Resp BP BP Pulse Ox 12/10/24 02:00 73 21 131/50 94 L 12/10/24 01:45 73 16 139/50 96 12/10/24 01:30 73 18 143/47 96 12/10/24 01:15 77 18 136/53 95 12/10/24 01:00 69 18 133/51 95 12/10/24 00:45 71 18 134/49 95 12/10/24 00:30 73 16 141/52 95 12/10/24 00:15 64 18 129/51 94 L 12/10/24 00:00 71 16 127/48 95 12/09/24 23:45 72 16 136/49 96 12/09/24 23:30 71 16 138/51 98 12/09/24 23:15 72 15 135/53 97 12/09/24 23:05 98.7 F 74 16 128/54 99 12/09/24 21:20 72 18 156/51 94 L 12/09/24 21:05 66 16 169/53 97 12/09/24 20:48 32 L 14 135/54 96 12/09/24 20:35 60 16 140/47 97 12/09/24 20:20 72 18 152/57 96 12/09/24 20:05 93 18 151/65 97 Intake and Output 12/09/24 12/09/24 12/10/24 14:59 22:59 06:59 Intake Total 101.712 455 Balance 101.712 455 Intake: IV 100 455 Sodium Chloride 0.9% 1, 375 000 ml @ 75 mls/hr IV . [id number] [facility] Rx#:[id number] TVP 80 Intake, IV Titration 1.712 Amount DOPamine DRIP 800 mg In 1.712 Dextrose/Water 1 250ml. bag @ 1 MCG/KG/MIN 1.276 mls/hr IV .Q24H [facility] Rx#: [id number] Other: Voiding Method Urinal Weight 68.039 kg 68.039 kg Results CBC & Chem 7: 12/10/24 05:13 12/10/24 05:13 Labs: Abnormal Lab Results - Last 24 Hours (Table) 12/09/24 12/09/24 12/09/24 Range/Units 20:05 20:05 20:05 WBC 10.82 H (4.50-10.00) 10*3/uL RBC 3.51 L (4.40-5.60) 10*6/uL Hgb 11.6 L (13.0-17.0) g/dL Hct 35.1 L (39.6-50.0) % MCV 100.0 H (80.0-97.0) fL MCH 33.0 H (27.0-32.0) pg Neutrophils # 7.99 H (1.80-7.70) 10*3/uL Chloride 113 H (98-107) mmol/L Carbon Dioxide 18 L (22-30) mmol/L BUN 24 H (9-20) mg/dL Glucose 173 H (74-99) mg/dL POC Glucose (mg/dL) (70-110) mg/dL Plasma Lactic Acid Ramos 4.8 H* (0.7-2.0) mmol/L Calcium 11.6 H (8.4-10.2) mg/dL Troponin I (0.000-0.034) ng/mL Total Protein 5.5 L (6.3-8.2) g/dL Albumin 3.3 L (3.5-5.0) g/dL 12/09/24 12/09/24 Range/Units 20:05 23:06 WBC (4.50-10.00) 10*3/uL RBC (4.40-5.60) 10*6/uL Hgb (13.0-17.0) g/dL Hct (39.6-50.0) % MCV (80.0-97.0) fL MCH (27.0-32.0) pg Neutrophils # (1.80-7.70) 10*3/uL Chloride (98-107) mmol/L Carbon Dioxide (22-30) mmol/L BUN (9-20) mg/dL Glucose (74-99) mg/dL POC Glucose (mg/dL) 151 H (70-110) mg/dL Plasma Lactic Acid Ramos (0.7-2.0) mmol/L Calcium (8.4-10.2) mg/dL Troponin I 0.253 H* (0.000-0.034) ng/mL Total Protein (6.3-8.2) g/dL Albumin (3.5-5.0) g/dL Thrombosis Risk Factor Assmnt - Choose All That Apply Any of the Below Risk Factors Present?: Yes Each Factor Represents 1 point: History of prior major surgery (<1month) Each Risk Factor Represents 3 Points: Age 75 years or older Thrombosis Risk Factor Assessment Total Risk Factor Score: 4 Thrombosis Risk Factor Assessment Level: Moderate Risk Assessment and Plan Assessment: 1. Syncope secondary to intermittent complete heart block - Patient experienced syncope episodes and was found to have intermittent complete heart block with pauses up to 10 seconds - Recommendations for transvenous pacemaker and possible permanent pacemaker - Continue dopamine drip as initiated - Monitor cardiac rhythm closely 2. NSTEMI (Exk-ZZ-Zyckotlys Myocardial Infarction) - EKG showing T-wave inversions - History of CAD status post CABG - Left heart catheterization performed, showing patent three-vessel bypass - Initiate torvastatin for lipid management 3. History of atrial fibrillation - Continue to monitor for recurrence - Anticoagulation to be addressed based on risk factors and current clinical status 4. Hypertension - Continue antihypertensive medications as tolerated - Monitor blood pressure closely 5. Hypercalcemia - Calcium level 11.6 - Continue fluid hydration with normal saline 6. Hypothyroidism - Continue levothyroxine as prescribed 7. DVT prophylaxis - Administer Lovenox 40 mg subQ daily Plan: - Verify and reconcile home medications - Continue proton pump inhibitor for GI prophylaxis - Monitor renal function and electrolytes - Reassess need for permanent pacemaker based on clinical course - Cardiology follow-up for management of CAD and arrhythmia - Endocrinology consult for management of hypercalcemia and hypothyroidism - Educate patient on symptoms of heart block and when to seek immediate medical attention - Arrange close outpatient follow-up after discharge Diagnostic tests pretty much unremarkable overall White blood cell count: 10 Hemoglobin: 11.6 Sodium: 141 Potassium: 4.1 TSH: 2.4 BUN: 24 Creatinine: 1 ) Lactic acid: Initially 4.8, decreased to 1.6 EKG: Showed T-wave inversions Left heart catheterization: Revealed patent three-vessel bypass
[2024-12-10 05:53] LABS: Basophils # (A) 0.01 10*3/uL (0.00-0.10); Basophils % (A) 0.1 %; Eosinophils # (A) 0.00 10*3/uL (0.04-0.35); Eosinophils % (A) 0.0 %; HCT 32.5 % (39.6-50.0); HGB 10.6 g/dL (13.0-17.0); Lymphocytes # (A) 1.01 10*3/uL (0.90-5.00); Lymphocytes % (A) 11.1 %; MCH 32.1 pg (27.0-32.0); MCHC 32.6 g/dL (32.0-37.0); MCV 98.5 fL (80.0-97.0); Monocytes # (A) 0.79 10*3/uL (0.20-1.00); Monocytes % (A) 8.7 %; Neutrophils # (A) 7.19 10*3/uL (1.80-7.70); Neutrophils % (A) 79.4 %; Platelet Count 162 10*3/uL (140-440); RBC 3.30 10*6/uL (4.40-5.60); RDW 14.4 % (11.5-14.5); WBC 9.06 10*3/uL (4.50-10.00)
[2024-12-10 06:00] LABS: ALT 28 U/L (4-49); AST 28 U/L (17-59); African American GFR (CKD) 88 (>60 ml/min/1.73 sqM); Albumin 2.8 g/dL (3.5-5.0); Alkaline Phosphatase 59 U/L (38-126); Anion Gap 9 mmol/L; Blood Urea Nitrogen 27 mg/dL (9-20); Calcium 9.2 mg/dL (8.4-10.2); Carbon Dioxide 21 mmol/L (22-30); Chloride 109 mmol/L (98-107); Glucose 113 mg/dL (74-99); Magnesium 1.9 mg/dL (1.6-2.3); Non-African American GFR(CKD) 76 (>60 ml/min/1.73 sqM); Potassium 4.3 mmol/L (3.5-5.1); Sodium 139 mmol/L (137-145); Total Protein 4.9 g/dL (6.3-8.2)
[2024-12-10] MEDS: ATORVASTATIN 40 MG TAB PO ONE (06:58)
[2024-12-10 10:23] LABS: INR 1.2 (<1.2); Prothrombin Time 12.8 sec (10.0-12.5)
[2024-12-10 10:32] LABS: African American GFR (CKD) 86 (>60 ml/min/1.73 sqM); Anion Gap 8 mmol/L; Blood Urea Nitrogen 27 mg/dL (9-20); Calcium 9.1 mg/dL (8.4-10.2); Carbon Dioxide 22 mmol/L (22-30); Chloride 110 mmol/L (98-107); Glucose 92 mg/dL (74-99); Non-African American GFR(CKD) 74 (>60 ml/min/1.73 sqM); Potassium 4.3 mmol/L (3.5-5.1); Sodium 140 mmol/L (137-145)
[2024-12-10] MEDS: ENOXAPARIN 40 MG/0.4 ML SYRINGE SQ SCH (11:34)
[2024-12-10] MEDS: CLOPIDOGREL 75 MG TAB PO SCH (11:34)
--- NOTE | 2024-12-10 12:58 | P.PN ---
Subjective Progress Note Date: 12/10/24 HISTORY OF PRESENTING ILLNESS This is a pleasant 84-year-old with past medical history significant for hyp ertension, ascending aortic dilation, skin cancer and CAD status post three- vessel CABG 10/25/2024 who presents secondary to syncopal episode. Patient follows with Dr. Lindsey at [place]. He was evaluated with findings on CTA of triple-vessel disease and eventually underwent heart catheterization showing [employer] of the RCA with collaterals as well as left main trifurcation disease. Intravascular ultrasound was performed which showed calcified left main with inability to pass catheter. Readout of 50 to 60% left main stenosis and otherwise 70% ostial calcified ramus, 90% ostial circumflex and ostial LAD 50% stenosis. He underwent SVG to PDA and SVG to ramus as well as GOMES to LAD 10/25/2024 which was fairly uneventful other than some postoperative atrial fibrillation. Patient initially presented 12/09/2024 at approximately noon secondary to a mechanical fall. He denied any actual loss of consciousness. He has had some numbness in his left leg. He was discharged home and then went to lunch and had a syncopal episode while seated where he became unresponsive. He was brought to the emergency department and found to have intermittent complete heart block with pauses up to 10 seconds with loss of consciousness witnessed by ER doctor. He denies any chest pain or pressure. He was started on a dopamine drip and did develop some nausea and vomiting. Denies any actual jaw pain or abdominal pain or diaphoresis. He had no real symptoms during his initial workup for his CAD. EKG with right bundle branch block with repeat EKG and catheterization lab showing deep T wave inversions in the inferior leads. White blood cell count 10.8, hemoglobin 11.6, creatinine 1.0, lactic acid 4.8, troponin 0.25. Progress note 12/10/2024 For concerns of sick sinus syndrome and pauses he got all transvenous pacemaker. Pacemaker is set at a basal pacing rate of 54 bpm. Patient is having intermi ttent pacing. On review of telemetry it appears that patient is having sick sinus syndrome with sinus pauses and required intermittent pacing. He had a heart catheterization with no post op complication. Heart catheterization showed patent bypass grafts 3 out of 3. PHYSICAL EXAMINATION Vital signs reviewed. CONSTITUTIONAL: No apparent distress. HEENT: Head is normocephalic. Pupils are equal, round. Sclerae anicteric. Mucous membranes of the mouth are moist. No JVD. No carotid bruit. CHEST EXAMINATION: Lungs are clear to auscultation. No chest wall tenderness is noted on palpation or with deep breathing. HEART EXAMINATION: Regular rate and rhythm. S1, S2 heard. No murmurs, gallops or rub. ABDOMEN: Soft, nontender. Positive bowel sounds. EXTREMITIES: 2+ peripheral pulses, no lower extremity edema and no calf tenderness. NEUROLOGIC EXAMINATION: Patient is awake, alert and oriented x3. ASSESSMENT Syncope Third-degree heart block intermittently with witnessed NSTEMI likely type II mechanism however having some nausea and worsening T wave inversions CAD status post CABG 10/2024 Hypertension Postoperative A-fib Pertinent cardiac testing TSH 0.8 PLAN Plan for PPM placement tomorrow Continue Plavix, Lipitor, lisinopril, metoprolol 25 twice daily Continue to monitor as you until the procedure. Objective - Vital Signs Vital signs: Vital Signs Temp 98.7 F 12/10/24 04:00 Pulse 73 12/10/24 07:00 Resp 18 12/10/24 07:00 BP 141/50 12/10/24 07:00 Pulse Ox 94 L 12/10/24 07:00 FiO2 Intake & Output 12/09/24 12/10/24 12/10/24 18:59 06:59 18:59 Intake Total 841.712 860 Output Total 150 300 Balance 691.712 560 Weight 77.7 kg Intake: IV 840 380 Sodium Chloride 0.9% 1, 600 300 000 ml @ 75 mls/hr IV . [id number] [facility] Rx#:[id number] TVP 140 80 Intake, IV Titration 1.712 Amount DOPamine DRIP 800 mg In 1.712 Dextrose/Water 1 250ml. bag @ 1 MCG/KG/MIN 1.276 mls/hr IV .Q24H [facility] Rx#: [id number] Oral 480 Output: Urine 150 300 Other: Voiding Method Urinal # Voids 1 1 - Labs CBC & Chem 7: 12/10/24 05:13 12/10/24 09:53 Labs: Abnormal Lab Results - Last 24 Hours (Table) 12/09/24 12/09/24 12/09/24 Range/Units 20:05 20:05 20:05 WBC 10.82 H (4.50-10.00) 10*3/uL RBC 3.51 L (4.40-5.60) 10*6/uL Hgb 11.6 L (13.0-17.0) g/dL Hct 35.1 L (39.6-50.0) % MCV 100.0 H (80.0-97.0) fL MCH 33.0 H (27.0-32.0) pg Immature Gran # (0.00-0.04) 10*3/uL Neutrophils # 7.99 H (1.80-7.70) 10*3/uL Eosinophils # (0.04-0.35) 10*3/uL PT (10.0-12.5) sec INR (<1.2) Chloride 113 H (98-107) mmol/L Carbon Dioxide 18 L (22-30) mmol/L BUN 24 H (9-20) mg/dL Glucose 173 H (74-99) mg/dL POC Glucose (mg/dL) (70-110) mg/dL Plasma Lactic Acid Ramos 4.8 H* (0.7-2.0) mmol/L Calcium 11.6 H (8.4-10.2) mg/dL Troponin I (0.000-0.034) ng/mL Total Protein 5.5 L (6.3-8.2) g/dL Albumin 3.3 L (3.5-5.0) g/dL 12/09/24 12/09/24 12/10/24 Range/Units 20:05 23:06 05:13 WBC (4.50-10.00) 10*3/uL RBC 3.30 L (4.40-5.60) 10*6/uL Hgb 10.6 L (13.0-17.0) g/dL Hct 32.5 L (39.6-50.0) % MCV 98.5 H (80.0-97.0) fL MCH 32.1 H (27.0-32.0) pg Immature Gran # 0.06 H (0.00-0.04) 10*3/uL Neutrophils # (1.80-7.70) 10*3/uL Eosinophils # 0.00 L (0.04-0.35) 10*3/uL PT (10.0-12.5) sec INR (<1.2) Chloride (98-107) mmol/L Carbon Dioxide (22-30) mmol/L BUN (9-20) mg/dL Glucose (74-99) mg/dL POC Glucose (mg/dL) 151 H (70-110) mg/dL Plasma Lactic Acid Ramos (0.7-2.0) mmol/L Calcium (8.4-10.2) mg/dL Troponin I 0.253 H* (0.000-0.034) ng/mL Total Protein (6.3-8.2) g/dL Albumin (3.5-5.0) g/dL 12/10/24 12/10/24 12/10/24 Range/Units 05:13 09:53 09:53 WBC (4.50-10.00) 10*3/uL RBC (4.40-5.60) 10*6/uL Hgb (13.0-17.0) g/dL Hct (39.6-50.0) % MCV (80.0-97.0) fL MCH (27.0-32.0) pg Immature Gran # (0.00-0.04) 10*3/uL Neutrophils # (1.80-7.70) 10*3/uL Eosinophils # (0.04-0.35) 10*3/uL PT 12.8 H (10.0-12.5) sec INR 1.2 H (<1.2) Chloride 109 H 110 H (98-107) mmol/L Carbon Dioxide 21 L (22-30) mmol/L BUN 27 H 27 H (9-20) mg/dL Glucose 113 H (74-99) mg/dL POC Glucose (mg/dL) (70-110) mg/dL Plasma Lactic Acid Ramos (0.7-2.0) mmol/L Calcium (8.4-10.2) mg/dL Troponin I (0.000-0.034) ng/mL Total Protein 4.9 L (6.3-8.2) g/dL Albumin 2.8 L (3.5-5.0) g/dL
--- NOTE | 2024-12-10 15:01 | P.PN ---
Subjective Progress Note Date: 12/10/24 84 year old M with PMH of HTN, CAD status post CABG on 10/2024, skin CA, ascending aortic dilation presents to the ED for syncope. In the ED he underwent extensive evaluation. BP 151/65, HR 93, RR 18, 97% on 3L NC. Labs significant for WBC 10/82, RBC 3.51, Hg 11.6, Hct 35.1, MCV 100, Cl 113, bicarb 18, BUN 24, glu 173, Ca 11.6, Lactic caid 4.8-1.6, Trop 0.253, BNP 4030, alb 3.3, TSH 2.44. EKG showed sinus bradycardia with first degree AC block and RBBB. In the ED he was noted to have complete heart block with pauses up to 10 seconds. He was started on a Dopamine drip and taken to the slab stripper. Cardiac cath showed distal left main 80 to 90%, ostial LAD 90%, ostial ramus 80%, ostial circumflex 90%, 1 00% mid RCA stenosis with patent GOMES to LAD, SVG to ramus, SVG to PDA. TVP was placed and he was sent to the ICU. 12/10 Patient was seen and examined. No complaints. Plans for permanent pacemaker tomorrow. CBC and BMP significant for RBC 3.3,m Hg 10.6, Hct 32.5, MCV 98.5, PT 12.8, INR 1.2, Cl 110, BUN 27. General: non toxic, no distress Derm: warm, dry Head: atraumatic, normocephalic, symmetric Eyes: EOMI, no lid lag, anicteric sclera Mouth: no lip lesion, mucus membranes moist Cardiovascular: S1S2 reg, no murmur Lungs: Decreased BS bilateral, no rhonchi, no rales , no accessory muscle use Ext: no gross muscle atrophy, no edema, no contractures Neuro: No FND Psych: AO x 3 Based on my assessment of this patient, this patient meets a high complexity level of care. Complete heart block: Status post TVP with plans for permenant pacemaker tomorrow. Stop Metoprolol for now. Telemetry monitoring. Cardiology on board. Troponin elevation with history of CAD post CABG in 10/2024: Cardiac cath as above. Plavix 75 mg PO QD. ASA 81 mg PO QHS. Lipitor 40 mg PO QHS. Cardiology on board. Macrocytic anemia: Hg appears stable. No signs of acute bleeding. Monitor. HTN: Lisinopril 10 mg PO QD. DC Metoprolol. Aortic dilation: Outpatient follow up. BPH: Flomax 0.8 mg PO QD. Finasteride 5 mg PO QHS. Resolved: Leukocytosis CODE STATUS: FULL CODE DVT Prophylaxis: Lovenox SQ GI Prophylaxis: Designated medical POA if patient is not able to make medical decisions for themselves: I have reviewed the following funeral pre need consultant notes: Cardio, Cath note. I have reviewed the results of the following tests: CBC, BMP. I have ordered the following tests: CBC and BMP in the AM. I have discussed the care of this patient with the following independent historian: RN. Rincon. I have independently interpreted the following test below: CXR. I have discussed the management of this patient with the following physician: Dr. Ace. Objective - Vital Signs Vital signs: Vital Signs Temp 98.7 F 12/10/24 04:00 Pulse 73 12/10/24 07:00 Resp 18 12/10/24 07:00 BP 141/50 12/10/24 07:00 Pulse Ox 94 L 12/10/24 07:00 FiO2 Intake & Output 12/09/24 12/10/24 12/10/24 18:59 06:59 18:59 Intake Total 841.712 860 Output Total 150 300 Balance 691.712 560 Weight 77.7 kg Intake: IV 840 380 Sodium Chloride 0.9% 1, 600 300 000 ml @ 75 mls/hr IV . [id number] [facility] Rx#:[id number] TVP 140 80 Intake, IV Titration 1.712 Amount DOPamine DRIP 800 mg In 1.712 Dextrose/Water 1 250ml. bag @ 1 MCG/KG/MIN 1.276 mls/hr IV .Q24H [facility] Rx#: [id number] Oral 480 Output: Urine 150 300 Other: Voiding Method Urinal # Voids 1 1 - Labs CBC & Chem 7: 12/10/24 05:13 12/10/24 09:53 Labs: Abnormal Lab Results - Last 24 Hours (Table) 12/09/24 12/09/24 12/09/24 Range/Units 20:05 20:05 20:05 WBC 10.82 H (4.50-10.00) 10*3/uL RBC 3.51 L (4.40-5.60) 10*6/uL Hgb 11.6 L (13.0-17.0) g/dL Hct 35.1 L (39.6-50.0) % MCV 100.0 H (80.0-97.0) fL MCH 33.0 H (27.0-32.0) pg Immature Gran # (0.00-0.04) 10*3/uL Neutrophils # 7.99 H (1.80-7.70) 10*3/uL Eosinophils # (0.04-0.35) 10*3/uL PT (10.0-12.5) sec INR (<1.2) Chloride 113 H (98-107) mmol/L Carbon Dioxide 18 L (22-30) mmol/L BUN 24 H (9-20) mg/dL Glucose 173 H (74-99) mg/dL POC Glucose (mg/dL) (70-110) mg/dL Plasma Lactic Acid Ramos 4.8 H* (0.7-2.0) mmol/L Calcium 11.6 H (8.4-10.2) mg/dL Troponin I (0.000-0.034) ng/mL Total Protein 5.5 L (6.3-8.2) g/dL Albumin 3.3 L (3.5-5.0) g/dL 12/09/24 12/09/24 12/10/24 Range/Units 20:05 23:06 05:13 WBC (4.50-10.00) 10*3/uL RBC 3.30 L (4.40-5.60) 10*6/uL Hgb 10.6 L (13.0-17.0) g/dL Hct 32.5 L (39.6-50.0) % MCV 98.5 H (80.0-97.0) fL MCH 32.1 H (27.0-32.0) pg Immature Gran # 0.06 H (0.00-0.04) 10*3/uL Neutrophils # (1.80-7.70) 10*3/uL Eosinophils # 0.00 L (0.04-0.35) 10*3/uL PT (10.0-12.5) sec INR (<1.2) Chloride (98-107) mmol/L Carbon Dioxide (22-30) mmol/L BUN (9-20) mg/dL Glucose (74-99) mg/dL POC Glucose (mg/dL) 151 H (70-110) mg/dL Plasma Lactic Acid Raoms (0.7-2.0) mmol/L Calcium (8.4-10.2) mg/dL Troponin I 0.253 H* (0.000-0.034) ng/mL Total Protein (6.3-8.2) g/dL Albumin (3.5-5.0) g/dL 12/10/24 12/10/24 12/10/24 Range/Units 05:13 09:53 09:53 WBC (4.50-10.00) 10*3/uL RBC (4.40-5.60) 10*6/uL Hgb (13.0-17.0) g/dL Hct (39.6-50.0) % MCV (80.0-97.0) fL MCH (27.0-32.0) pg Immature Gran # (0.00-0.04) 10*3/uL Neutrophils # (1.80-7.70) 10*3/uL Eosinophils # (0.04-0.35) 10*3/uL PT 12.8 H (10.0-12.5) sec INR 1.2 H (<1.2) Chloride 109 H 110 H (98-107) mmol/L Carbon Dioxide 21 L (22-30) mmol/L BUN 27 H 27 H (9-20) mg/dL Glucose 113 H (74-99) mg/dL POC Glucose (mg/dL) (70-110) mg/dL Plasma Lactic Acid Ramos (0.7-2.0) mmol/L Calcium (8.4-10.2) mg/dL Troponin I (0.000-0.034) ng/mL Total Protein 4.9 L (6.3-8.2) g/dL Albumin 2.8 L (3.5-5.0) g/dL
[2024-12-10] MEDS: SODIUM CHLORIDE 0.9% 1,000 ML IV SCH ×2 (17:48)
[2024-12-10] MEDS: METOPROLOL TARTRATE 25 MG TAB PO SCH (20:18)
[2024-12-10] MEDS: ATORVASTATIN 40 MG TAB PO SCH (20:29)
[2024-12-10] MEDS: ASPIRIN 81 MG PO SCH (20:29)
[2024-12-10] MEDS: ONDANSETRON 4 MG/2 ML VIAL IVP PRN (20:29)
[2024-12-10] MEDS: MORPHINE SULFATE 4 MG/ML SYRINGE IV PRN (20:30)
[2024-12-11] MEDS: SODIUM CHLORIDE 0.9% 1,000 ML IV ONE (08:38)
[2024-12-11] MEDS: ceFAZolin 1 GM in SODIUM CHLORIDE 0.9% IRRIG BTL 250 ML IRRIGATION PRN (08:38)
[2024-12-11] MEDS: fentaNYL (PF) 50 MCG/1 ML VIAL IVP ONE ×2 (09:22)
[2024-12-11] MEDS: MIDAZOLAM 2 MG/2 ML VIAL IVP ONE (09:23)
[2024-12-11] MEDS: LIDOCAINE 1% INJ 10MG/ML (20 ML MDV) SQ ONE (09:49)
[2024-12-11] MEDS: IOPAMIDOL-300 100ML BTL IVP ONE (09:53)
[2024-12-11] MEDS: ALPRAZolam 0.5 MG TAB PO PRN (12:30)
--- NOTE | 2024-12-11 13:25 | XR ---
EXAMINATION TYPE: XR chest 1V portable DATE OF EXAM: 12/11/2024 12:50 PM COMPARISON: Chest radiographs from 12/09/2024. CLINICAL INDICATION: 12/09/2024., 84 years old with history of Lead placement check; [facility] TECHNIQUE: XR chest 1V portable Frontal view of the chest. FINDINGS: Lungs/Pleura: There is no evidence of pleural effusion, focal consolidation, or pneumothorax. Pulmonary vascularity: Pulmonary vascular congestion. Heart/mediastinum: Cardiomediastinal silhouette is enlarged. Atherosclerotic calcifications are seen in the aorta. Two lead cardiac conduction device overlying the left hemithorax with lead tips projec ting over the right ventricle and right atrium. Musculoskeletal: No acute osseous pathology. Midline sternotomy wires are noted. Other findings: None IMPRESSION: Cardiomegaly and mild pulmonary vascular congestion. Correlate with BNP for congestive heart failure. [facility], , 12/11/2024 1:23 PM
[2024-12-11] MEDS: FUROSEMIDE 10 MG/ML 4 ML VIAL IV STA (14:37)
--- NOTE | 2024-12-11 16:11 | P.PN ---
Subjective Progress Note Date: 12/11/24 84 year old M with PMH of HTN, CAD status post CABG on 10/2024, skin CA, ascending aortic dilation presents to the ED for syncope. In the ED he underwent extensive evaluation. BP 151/65, HR 93, RR 18, 97% on 3L NC. Labs significant for WBC 10/82, RBC 3.51, Hg 11.6, Hct 35.1, MCV 100, Cl 113, bicarb 18, BUN 24, glu 173, Ca 11.6, Lactic caid 4.8-1.6, Trop 0.253, BNP 4030, alb 3.3, TSH 2.44. EKG showed sinus bradycardia with first degree AC block and RBBB. In the ED he was noted to have complete heart block with pauses up to 10 seconds. He was started on a Dopamine drip and taken to the grinding and polishing laborer. Cardiac cath showed distal left main 80 to 90%, ostial LAD 90%, ostial ramus 80%, ostial circumflex 90%, 1 00% mid RCA stenosis with patent GOMES to LAD, SVG to ramus, SVG to PDA. TVP was placed and he was sent to the ICU. 12/10 Patient was seen and examined. No complaints. Plans for permanent pacemaker tomorrow. CBC and BMP significant for RBC 3.3,m Hg 10.6, Hct 32.5, MCV 98.5, PT 12.8, INR 1.2, Cl 110, BUN 27. 12/11 Patient was seen and examined. Underwent permenant pacemaker today. Reports some SOB post procedure for which he received Lasix 40 mg IV x 1. CXR showed mild pulmonary vascular congestion. Coag panel and BMP significant for PT 12.8, INR 1.2, Cl 110, BUN 27. General: non toxic, no distress Derm: warm, dry Head: atraumatic, normocephalic, symmetric Eyes: EOMI, no lid lag, anicteric sclera Mouth: no lip lesion, mucus membranes moist Cardiovascular: S1S2 reg, no murmur Lungs: Decreased BS bilateral, no rhonchi, no rales , no accessory muscle use Ext: no gross muscle atrophy, no edema, no contractures Neuro: No FND Psych: AO x 3 Based on my assessment of this patient, this patient meets a high complexity level of care. Mild CHF exacerbation: Lasix 40 mg IV x 1. Repeat BMP and CXR in the AM. Complete heart block: Status post permenant pacemaker 12/11. Stop Metoprolol for now, restart tomorrow. Telemetry monitoring. Cardiology on board. Troponin elevation with history of CAD post CABG in 10/2024: Cardiac cath as above. Plavix 75 mg PO QD. ASA 81 mg PO QHS. Lipitor 40 mg PO QHS. Cardiology on board. Macrocytic anemia: Hg appears stable. No signs of acute bleeding. Monitor. HTN: Lisinopril 10 mg PO QD. DC Metoprolol. Aortic dilation: Outpatient follow up. BPH: Flomax 0.8 mg PO QD. Finasteride 5 mg PO QHS. Resolved: Leukocytosis Plans to interrogate pacemaker tomorrow. PT and OT consulted. Anticipate DC in 1-2 days. CODE STATUS: FULL CODE DVT Prophylaxis: Lovenox SQ GI Prophylaxis: Designated medical POA if patient is not able to make medical decisions for themselves: I have reviewed the following toy consultant notes: Cardio note. I have reviewed the results of the following tests: Coag, BMP. I have ordered the following tests: BMP and CXR in the AM. I have discussed the care of this patient with the following independent historian: RN. Rincon. I have independently interpreted the following test below: CXR. I have discussed the management of this patient with the following physician: Objective - Vital Signs Vital signs: Vital Signs Temp 98.2 F 12/11/24 12:00 Pulse 85 12/11/24 15:56 Resp 16 12/11/24 15:56 BP 163/54 12/11/24 15:56 Pulse Ox 95 12/11/24 15:56 FiO2 Intake & Output 12/10/24 12/11/24 12/11/24 18:59 06:59 18:59 Intake Total 1950 910 530 Output Total 800 300 500 Balance 1150 610 30 Weight 77.8 kg Intake: IV 990 910 530 Sodium Chloride 0.9% 1, 300 650 240 000 ml @ 50 mls/hr IV . Q20H [facility] Rx#:[id number] Sodium Chloride 0.9% 1, 450 000 ml @ 75 mls/hr IV . [id number] [facility] Rx#:[id number] TVP 240 260 40 Oral 960 Output: Urine 800 300 500 Other: Voiding Method Urinal Urinal Urinal # Voids 1 - Labs CBC & Chem 7: 12/10/24 05:13 12/10/24 09:53
[2024-12-12 07:13] LABS: African American GFR (CKD) >90 (>60 ml/min/1.73 sqM); Anion Gap 8 mmol/L; Blood Urea Nitrogen 26 mg/dL (9-20); Calcium 8.5 mg/dL (8.4-10.2); Carbon Dioxide 22 mmol/L (22-30); Chloride 110 mmol/L (98-107); Glucose 115 mg/dL (74-99); Non-African American GFR(CKD) 82 (>60 ml/min/1.73 sqM); Potassium 3.9 mmol/L (3.5-5.1); Sodium 140 mmol/L (137-145)
--- NOTE | 2024-12-12 07:29 | XR ---
EXAMINATION TYPE: XR chest 2V DATE OF EXAM: 12/12/2024 6:33 AM COMPARISON: Multiple radiographs, with the most recent on 12/11/2024 TECHNIQUE: XR chest 2V Frontal and lateral views of the chest. CLINICAL INDICATION:Male, 84 years old with history of perm pacemaker; FINDINGS: Lungs/Pleura: No pneumothorax. Small left pleural effusion with associated atelectasis. Trace left pl eural effusion. Pulmonary vascularity: Pulmonary vascular congestion. Heart/mediastinum: Cardiomediastinal silhouette is enlarged and stable. Atherosclerotic calcificatio ns are seen in the aorta. Two lead cardiac conduction device overlying the left hemithorax with lead tips projecting over the right ventricle and right atrium. Musculoskeletal: No acute osseous pathology. Midline sternotomy wires are noted and stable. IMPRESSION: Cardiomegaly, pulmonary vascular congestion and bilateral pleural effusions. Correlate with BNP for c ongestive heart failure. [facility], , 12/12/2024 7:27 AM
[2024-12-12] MEDS ORDERED: METOPROLOL SUCCINATE (ER) 25 MG TAB.ER.24H PO SCH (09:30)
[2024-12-12] MEDS: FUROSEMIDE 10 MG/ML 4 ML VIAL IV SCH (09:46)
--- NOTE | 2024-12-12 11:16 | P.PCN ---
Description of Procedure: CARDIOLOGY PROCEDURE NOTE Can Cleaner: Dr. Shan Fletcher Procedure performed: Insertion dual chamber permanent pacemaker Site: Left subclavian Indications: Complete heart block, syncope, symptomatic bradycardia Complications: None Blood Loss: Minimal Description of Procedure: After the risks, benefits, and alternatives of the above-mentioned procedure was explained in detail with the patient, informed consent was obtained. The patient was taken to the cardiac catheterization suite where the left subclavian area was sterily prepped and draped in the usual fashion. One percent lidocaine was used to anesthetize the left subclavian area. Twenty milliliters of Isoview 370 contrast was injected into the left antecubital vein to allow for direct visualization of the left subclavian vein under fluoroscopy. A 1.5 inch incision was made utilizing a #15 blade in the left subclavian site. Hemostasis was made complete. Electrocautery along with digital blunt dissection was utilized to dissect to the level of the pectoralis muscle fascia and create a pocket large enough to accommodate the generator. A thin walled micro puncuture needle was used to cannulate the left subclavian vein. A guide-wire was inserted through the needle into the vascular lumen under fluoroscopic guidance. The needle was removed. Another thin walled micr puncture needle was used to again cannulate the left subclavian vein. A guide-wire was inserted through the needle into the vascular lumen under fluoroscopic guidance. The needle was removed and both guide-wires were attached to the field. A venous sheath and dilator were advanced over the guidewire into the vascular lumen under fluoroscopic guidance. The dilator and guidewire were then removed. A right ventricular bipolar lead was inserted into the sheath and advanced under fluoroscopic guidance into the right ventricle under fluoroscopic guidance. Adequate sensing and pacing th resholds were achieved and the lead was screwed into place in the RV septum. The sheath was then torn away. The lead collar was advanced and anchored into place utilizing #0 silk suture. Next, another venous sheath and dilator were advanced under fluoroscopic guidance into the vascular lumen over the guidewire. After removal of the dilator and guidewire, a right atrial bipolar lead was inserted into this sheath and advanced under fluoroscopic guidance into the right atrium. The lead was positioned into the right atrial appendage. Adequate sensing and pacing thresholds were then achieved and the lead was screwed into place. The sheath was then torn away. The lead collar was advanced and anchored into place utilizing #0 silk suture. The leads were then inserted into the appropriate position into the generator. They were then secured with the setscrew provided. The leads and generator were inserted into the pocket with the leads posterior. The subcutaneous tissue was approximated utilizing #2.0 and 3.0 vicryl in an interrupted stitch fashion. The dermal layer was approximated utilizing #4.0 vicryl. The area was cleansed with sterile saline and dried. A sterile 4x4 dressing was applied and the patient was transferred to the post catheterization holding area in stable and satisfactory condition. The patient tolerated the procedure well. Generator Data Dairy Lab Technician: [employer] Brand: Meditech [id number] Model #: [id number] Serial#: [id number] Right Atrial Bipolar Lead Data: Type: Active fixation lead Dairy Lab Technician: [employer] Model#: [id number] Serial Number: [id number] Right Ventricular Bipolar Lead Data: Type: Active fixation lead Dairy Lab Technician: [employer] Model #: [id number] Serial #: [id number] Stimulation Thresholds: Right atrial bipolar lead pacing and sensing thresholds Voltage: 0.7 V Impedance: 460 ohms P-wave sensin.8 mV Right Ventricular bipolar lead pacing and sensing thresholds Pulse Width: 0.4ms Voltage: 0.5 volts Impedance: 540 ohms R-wave sensin.4 mV Parameter Setting: Pacing mode is AAIR<=>DDDR Lower rate 60 bpm Upper rate 130 bpm Impressions: 1. Successful implantation of a dual chamber permanent pacemaker in the left pectoral site. Plan: 1. Routine post procedure care will be instituted as well as outpatient follow- up surveillance.
--- NOTE | 2024-12-12 11:31 | P.PN ---
Subjective Progress Note Date: 12/12/24 84 year old M with PMH of HTN, CAD status post CABG on 10/2024, skin CA, ascending aortic dilation presents to the ED for syncope. In the ED he underwent extensive evaluation. BP 151/65, HR 93, RR 18, 97% on 3L NC. Labs significant for WBC 10/82, RBC 3.51, Hg 11.6, Hct 35.1, MCV 100, Cl 113, bicarb 18, BUN 24, glu 173, Ca 11.6, Lactic caid 4.8-1.6, Trop 0.253, BNP 4030, alb 3.3, TSH 2.44. EKG showed sinus bradycardia with first degree AC block and RBBB. In the ED he was noted to have complete heart block with pauses up to 10 seconds. He was started on a Dopamine drip and taken to the catheter builder. Cardiac cath showed distal left main 80 to 90%, ostial LAD 90%, ostial ramus 80%, ostial circumflex 90%, 1 00% mid RCA stenosis with patent GOMES to LAD, SVG to ramus, SVG to PDA. TVP was placed and he was sent to the ICU. 12/10 Patient was seen and examined. No complaints. Plans for permanent pacemaker tomorrow. CBC and BMP significant for RBC 3.3,m Hg 10.6, Hct 32.5, MCV 98.5, PT 12.8, INR 1.2, Cl 110, BUN 27. 12/11 Patient was seen and examined. Underwent permenant pacemaker today. Reports some SOB post procedure for which he received Lasix 40 mg IV x 1. CXR showed mild pulmonary vascular congestion. Coag panel and BMP significant for PT 12.8, INR 1.2, Cl 110, BUN 27. 12/12 Patient was seen and examined. Continues to feel SOB. CXR shows pulmonary vascular congestion, he has been started on Lasix 40 mg IV BID and Echo has been ordered. BMP shows Cl 110, BUN 26, glu 115. BP 157/46, HR 75, RR 16, T 97.6F, 90% on RA. General: non toxic, no distress Derm: warm, dry Head: atraumatic, normocephalic, symmetric Eyes: EOMI, no lid lag, anicteric sclera Mouth: no lip lesion, mucus membranes moist Cardiovascular: S1S2 reg, no murmur Lungs: Decreased BS bilateral, no rhonchi, no rales , no accessory muscle use Ext: no gross muscle atrophy, no edema, no contractures Neuro: No FND Psych: AO x 3 Based on my assessment of this patient, this patient meets a high complexity level of care. Hypoxia secondary to CHF exacerbation: Lasix 40 mg IV BID. Strict intake and outtake. Daily weights. Echo ordered. Monitor daily e-lytes and renal function. Repeat BMP and CXR in the AM. Complete heart block: Status post permenant pacemaker 12/11. Started on Coreg 6.25 mg PO BID. Telemetry monitoring. Cardiology on board. Troponin elevation with history of CAD post CABG in 10/2024: Cardiac cath as above. Plavix 75 mg PO QD. ASA 81 mg PO QHS. Lipitor 40 mg PO QHS. Cardiology on board. Macrocytic anemia: Hg appears stable. No signs of acute bleeding. Monitor. HTN: Lisinopril 10 mg PO QD. Coreg as above. Aortic dilation: Outpatient follow up. BPH: Flomax 0.8 mg PO QD. Finasteride 5 mg PO QHS. Resolved: Leukocytosis CODE STATUS: FULL CODE DVT Prophylaxis: Lovenox SQ GI Prophylaxis: Designated medical POA if patient is not able to make medical decisions for themselves: I have reviewed the following performance test consultant notes: Cardio note. I have reviewed the results of the following tests: BMP. I have ordered the following tests: BMP and CXR in the AM. I have discussed the care of this patient with the following independent historian: RN. . I have independently interpreted the following test below: CXR. I have discussed the management of this patient with the following physician: Objective - Vital Signs Vital signs: Vital Signs Temp 97.6 F 12/12/24 03:18 Pulse 75 12/12/24 08:23 Resp 16 12/12/24 08:23 BP 157/46 12/12/24 08:23 Pulse Ox 90 L 12/12/24 08:23 FiO2 Intake & Output 12/11/24 12/12/24 12/12/24 18:59 06:59 18:59 Intake Total 530 500 Output Total 1325 450 Balance -795 -450 500 Weight 79 kg Intake: IV 530 20 Invasive Line 1 10 Invasive Line 2 10 Sodium Chloride 0.9% 1, 240 000 ml @ 50 mls/hr IV . Q20H COUNT INCLUDES THE [facility] Rx#:[id number] TVP 40 Oral 0 480 Output: Urine 1325 450 Other: Voiding Method Urinal Urinal Urinal - Labs CBC & Chem 7: 12/10/24 05:13 12/12/24 06:36 Labs: Abnormal Lab Results - Last 24 Hours (Table) 12/12/24 Range/Units 06:36 Chloride 110 H (98-107) mmol/L BUN 26 H (9-20) mg/dL Glucose 115 H (74-99) mg/dL
--- NOTE | 2024-12-12 12:37 | CA ---
Transthoracic Echo Report Name: Damian Velez Age: 84 Gender: M : 1940 Exam Date: 12/12/2024 10:07 Exam Location: [place] [facility] Ht (in): 71 Wt (lb): 174 Ordering Physician: Alex Ace MD ([id number]) Attending/Referring Phys: Radiology Physician Erin Schmitt RDCS Procedure CPT: Indications: pericardial effusion Cardiac Hx: Pacemaker Technical Quality: Poor Contrast 1: Total Dose (mL): Contrast 2: Total Dose (mL): MEASUREMENTS (Male / Female) Normal Values 2D ECHO LV Diastolic Diameter PLAX 4.5 cm 4.2 - 5.9 / 3.9 - 5.3 cm LV Systolic Diameter PLAX 2.8 cm IVS Diastolic Thickness 1.0 cm 0.6 - 1.0 / 0.6 - 0.9 cm LVPW Diastolic Thickness 1.5 cm 0.6 - 1.0 / 0.6 - 0.9 cm LV Relative Wall Thickness 0.5 RV Internal Dim ED PLAX 2.7 cm LVOT Diameter 2.2 cm LA Systolic Diameter LX 3.5 cm 3.0 - 4.0 / 2.7 - 3.8 cm LV Diastolic Volume MOD BP 140.9 cm??? 67 - 155 / 56 - 104 cm??? LV Systolic Volume MOD BP 61.4 cm??? 22 - 58 / 19 - 49 cm??? LV Ejection Fraction MOD BP 56.5 % >= 55 % LV Cardiac Index MOD BP 2794.2 cm???/min???m??? LV Diastolic Volume MOD 4C 163.1 cm??? LV Systolic Volume MOD 4C 58.8 cm??? LV Ejection Fraction MOD 4C 64.0 % LV Cardiac Index MOD 4C 3662.5 cm???/min???m??? LV Diastolic Length 4C 8.6 cm LV Systolic Length 4C 7.2 cm LV Diastolic Volume MOD 2C 123.2 cm??? LV Systolic Volume MOD 2C 63.6 cm??? LV Ejection Fraction MOD 2C 48.4 % LV Cardiac Index MOD 2C 2091.9 cm???/min???m??? LV Diastolic Length 2C 8.8 cm LV Systolic Length 2C 7.0 cm LA Volume 51.1 cm??? 18 - 58 / 22 - 52 cm??? LA Volume Index 25.6 cm???/m??? 16 - 28 cm???/m??? M-MODE Aortic Root Diameter MM 3.9 cm AV Cusp Separation MM 1.7 cm DOPPLER AV Peak Velocity 116.6 cm/s AV Peak Gradient 5.4 mmHg AI Peak Velocity 427.4 cm/s AI Peak Gradient 73.1 mmHg AI Pressure Half Time 255.5 ms LVOT Peak Velocity 75.6 cm/s LVOT Peak Gradient 2.3 mmHg AV Area Cont Eq pk 2.4 cm??? MV Area PHT 3.9 cm??? Mitral E Point Velocity 74.5 cm/s Mitral A Point Velocity 54.5 cm/s Mitral E to A Ratio 1.4 MV Deceleration Time 193.6 ms TR Peak Velocity 336.7 cm/s TR Peak Gradient 45.3 mmHg Right Atrial Pressure 5.0 mmHg Pulmonary Artery Systolic Pressu 50.3 mmHg FINDINGS Left Ventricle Left ventricular ejection fraction is estimated at 55-60%. Mildly increased left ventricular systolic volume. No obvious regional wall motion abnormalities. Right Ventricle Normal right ventricular size and function. Moderate pulmonary hypertension. Right ventricular systolic pressure estimated at 50 mm hg. Right Atrium Normal right atrial size. No right atrial thrombus or mass seen. Left Atrium Normal left atrial size. No left atrial thrombus or mass present. Mitral Valve Mild thickening/calcification of the anterior mitral valve leaflet. No mitral stenosis. Trace mitral regurgitation. Aortic Valve Trileaflet aortic valve. Thickened aortic valve without stenosis. Mild-to- moderate aortic regurgitation. Tricuspid Valve Tricuspid valve not well visualized. Moderate tricuspid regurgitation. Pulmonic Valve Pulmonic valve not well visualized. No pulmonic regurgitation. Pericardium Minimal pericardial effusion. Large left pleural effusion. Aorta Mildly dilated aortic annulus. Normal size proximal ascending aorta. CONCLUSIONS Reason for echo: Syncope LVH with preserved systolic function Moderate pulmonary hypertension Small pericardial effusion with pericardial thickening Large pleural effusion with exudative material Thickened aortic valve, relatively immobile with moderate to severe aortic regurgitation Previewed by: Dr. Tyler Villarreal MD (Electronically Signed) Final Date: 12 December 2024 12:36
--- NOTE | 2024-12-12 12:53 | P.PN ---
Subjective Progress Note Date: 12/12/24 HISTORY OF PRESENTING ILLNESS This is a pleasant 84-year-old with past medical history significant for hyp ertension, ascending aortic dilation, skin cancer and CAD status post three- vessel CABG 10/25/2024 who presents secondary to syncopal episode. Patient follows with Dr. Lindsey at [place]. He was evaluated with findings on CTA of triple-vessel disease and eventually underwent heart catheterization showing SENIOR SCIENTIST of the RCA with collaterals as well as left main trifurcation disease. Intravascular ultrasound was performed which showed calcified left main with inability to pass catheter. Readout of 50 to 60% left main stenosis and otherwise 70% ostial calcified ramus, 90% ostial circumflex and ostial LAD 50% stenosis. He underwent SVG to PDA and SVG to ramus as well as GOMES to LAD 10/25/2024 which was fairly uneventful other than some postoperative atrial fibrillation. Patient initially presented 12/09/2024 at approximately noon secondary to a mechanical fall. He denied any actual loss of consciousness. He has had some numbness in his left leg. He was discharged home and then went to lunch and had a syncopal episode while seated where he became unresponsive. He was brought to the emergency department and found to have intermittent complete heart block with pauses up to 10 seconds with loss of consciousness witnessed by ER doctor. He denies any chest pain or pressure. He was started on a dopamine drip and did develop some nausea and vomiting. Denies any actual jaw pain or abdominal pain or diaphoresis. He had no real symptoms during his initial workup for his CAD. EKG with right bundle branch block with repeat EKG and catheterization lab showing deep T wave inversions in the inferior leads. White blood cell count 10.8, hemoglobin 11.6, creatinine 1.0, lactic acid 4.8, troponin 0.25. Progress note 12/10/2024 For concerns of sick sinus syndrome and pauses he got all transvenous pacemaker. Pacemaker is set at a basal pacing rate of 54 bpm. Patient is having intermi ttent pacing. On review of telemetry it appears that patient is having sick sinus syndrome with sinus pauses and required intermittent pacing. He had a heart catheterization with no post op complication. Heart catheterization showed patent bypass grafts 3 out of 3. 12/12/2024 Patient was seen and examined at bedside this a.m. He underwent PPM placement yesterday. No postop complication. Pacemaker interrogation today shows appropriate functioning. Chest x-ray shows small left-sided pleural effusion with mild pulmonary congestion. He received 1 dose of IV Lasix with good urine output yesterday. PHYSICAL EXAMINATION Vital signs reviewed. CONSTITUTIONAL: No apparent distress. HEENT: Head is normocephalic. Pupils are equal, round. Sclerae anicteric. Mucous membranes of the mouth are moist. No JVD. No carotid bruit. CHEST EXAMINATION: Lungs are clear to auscultation. No chest wall tenderness is noted on palpation or with deep breathing. HEART EXAMINATION: Regular rate and rhythm. S1, S2 heard. No murmurs, gallops or rub. ABDOMEN: Soft, nontender. Positive bowel sounds. EXTREMITIES: 2+ peripheral pulses, no lower extremity edema and no calf tenderness. NEUROLOGIC EXAMINATION: Patient is awake, alert and oriented x3. ASSESSMENT Syncope Mild HFpEF exacerbation with small left pleural effusion and pulm congestion Third-degree heart block intermittently with witnessed NSTEMI likely type II mechanism however having some nausea and worsening T wave inversions CAD status post CABG 10/2024 Hypertension Postoperative A-fib after his CABG. not on anticoagulation as per primary ca rdiologist. Pertinent cardiac testing TSH 0.8, NT-proBNP 4000, troponin 0.2 PLAN Give IV Lasix 40 twice daily. Obtain updated echocardiogram to make sure there is no pericardial effusion. Reevaluate tomorrow, if doing well, discharged on p.o. Lasix 40 mg daily to follow-up with primary railroad shop inspector. He wants to follow-up in the device office. Set up device checkup within 1 week with his primary railroad shop inspector. Continue aspirin, Plavix, Lipitor, lisinopril, metoprolol 25 twice daily Continue to monitor as you until the procedure. Objective - Vital Signs Vital signs: Vital Signs Temp 97.6 F 12/12/24 03:18 Pulse 75 12/12/24 08:23 Resp 16 12/12/24 08:23 BP 157/46 12/12/24 08:23 Pulse Ox 90 L 12/12/24 08:23 FiO2 Intake & Output 12/11/24 12/12/24 12/12/24 18:59 06:59 18:59 Intake Total 530 500 Output Total 1325 450 200 Balance -795 -450 300 Weight 79 kg Intake: IV 530 20 Invasive Line 1 10 Invasive Line 2 10 Sodium Chloride 0.9% 1, 240 000 ml @ 50 mls/hr IV . Q20H [facility] Rx#:[id number] TVP 40 Oral 0 480 Output: Urine 1325 450 200 Other: Voiding Method Urinal Urinal Urinal - Labs CBC & Chem 7: 12/10/24 05:13 12/12/24 06:36 Labs: Abnormal Lab Results - Last 24 Hours (Table) 12/12/24 Range/Units 06:36 Chloride 110 H (98-107) mmol/L BUN 26 H (9-20) mg/dL Glucose 115 H (74-99) mg/dL
[2024-12-13] MEDS: COLCHICINE 0.6 MG EACH PO SCH (10:06)
[2024-12-13] MEDS: FUROSEMIDE 40 MG TAB PO SCH (10:06)
[2024-12-13 12:05] VITALS: BMI 22.6
[2024-12-13 12:05] LABS: ABG HCO3 28 mmol/L (21-25); ABG PCO2 35 mmHg (35-45); ABG PH 7.51 (7.35-7.45); ABG PO2 61 mmHg (83-108); ABG TCO2 29 mmol/L (19-24); Allen Test Performed? Yes
--- NOTE | 2024-12-13 14:36 | P.PN ---
Subjective Progress Note Date: 12/13/24 HISTORY OF PRESENTING ILLNESS This is a pleasant 84-year-old with past medical history significant for hyp ertension, ascending aortic dilation, skin cancer and CAD status post three- vessel CABG 10/25/2024 who presents secondary to syncopal episode. Patient follows with Dr. Lindsey at [place]. He was evaluated with findings on CTA of triple-vessel disease and eventually underwent heart catheterization showing PROSTHODONTIST of the RCA with collaterals as well as left main trifurcation disease. Intravascular ultrasound was performed which showed calcified left main with inability to pass catheter. Readout of 50 to 60% left main stenosis and otherwise 70% ostial calcified ramus, 90% ostial circumflex and ostial LAD 50% stenosis. He underwent SVG to PDA and SVG to ramus as well as GOMES to LAD 10/25/2024 which was fairly uneventful other than some postoperative atrial fibrillation. Patient initially presented 12/09/2024 at approximately noon secondary to a mechanical fall. He denied any actual loss of consciousness. He has had some numbness in his left leg. He was discharged home and then went to lunch and had a syncopal episode while seated where he became unresponsive. He was brought to the emergency department and found to have intermittent complete heart block with pauses up to 10 seconds with loss of consciousness witnessed by ER doctor. He denies any chest pain or pressure. He was started on a dopamine drip and did develop some nausea and vomiting. Denies any actual jaw pain or abdominal pain or diaphoresis. He had no real symptoms during his initial workup for his CAD. EKG with right bundle branch block with repeat EKG and catheterization lab showing deep T wave inversions in the inferior leads. White blood cell count 10.8, hemoglobin 11.6, creatinine 1.0, lactic acid 4.8, troponin 0.25. Progress note 12/10/2024 For concerns of sick sinus syndrome and pauses he got all transvenous pacemaker. Pacemaker is set at a basal pacing rate of 54 bpm. Patient is having intermi ttent pacing. On review of telemetry it appears that patient is having sick sinus syndrome with sinus pauses and required intermittent pacing. He had a heart catheterization with no post op complication. Heart catheterization showed patent bypass grafts 3 out of 3. 12/12/2024 Patient was seen and examined at bedside this a.m. He underwent PPM placement yesterday. No postop complication. Pacemaker interrogation today shows appropriate functioning. Chest x-ray shows small left-sided pleural effusion with mild pulmonary congestion. He received 1 dose of IV Lasix with good urine output yesterday. 12/13/2024 Seen and examined at bedside this a.m. Appears very lethargic today, left lung appears to have mild crackles and rhonchi. Responded well to IV diuretics yesterday. We obtained a chest x-ray and it showed improvement in the left lung with mild right lower lung congestion. We obtained an ABG which showed pH of 7.51, PO261, PCO2 of 35. We also obtained a procalcitonin level to make sure there is no infection PHYSICAL EXAMINATION HEENT: Head is normocephalic. Pupils are equal, round. Sclerae anicteric. Mucous membranes of the mouth are moist. No JVD. No carotid bruit. CHEST EXAMINATION: Lungs are clear to auscultation. No chest wall tenderness is noted on palpation or with deep breathing. HEART EXAMINATION: Regular rate and rhythm. S1, S2 heard. No murmurs, gallops or rub. ABDOMEN: Soft, nontender. Positive bowel sounds. EXTREMITIES: 2+ peripheral pulses, no lower extremity edema and no calf tenderness. NEUROLOGIC EXAMINATION: Patient is awake, alert and oriented x3. ASSESSMENT Syncope, likely from third-degree AV block status post PPM Mild HFpEF exacerbation NSTEMI likely type II mechanism however having some nausea and worsening T wave inversions CAD status post CABG 10/2024 Moderate aortic regurgitation, moderate tricuspid regurgitation Moderate pulmonary hypertension Hypertension Postoperative A-fib after his CABG. not on anticoagulation as per primary geospatial developer. Pertinent cardiac testing TSH 0.8, NT-proBNP 4000, troponin 0.2 Echocardiogram showed preserved LVEF, small pericardial effusion, large left pleural effusion, thickened aortic valve with moderate aortic regurgitation, moderate tricuspid regurgitation, moderate pulmonary hypertension with RVSP of 50 mmHg PLAN Start colchicine 0.6 mg daily for mild pericardial effusion. Discontinue IV Lasix and start p.o. Lasix 40 mg daily, increase lisinopril to 20 mg daily Continue aspirin, Lipitor, Plavix, continue Coreg 6.25 twice daily I would monitor the patient for 1 more day Set up appointment with primary geospatial developer for device check within a week. Outpatient cardiac rehab If procalcitonin is elevated, consider antibiotics Objective - Vital Signs Vital signs: Vital Signs Temp 97.6 F 12/13/24 11:02 Pulse 68 12/13/24 13:31 Resp 22 12/13/24 11:02 BP 150/48 12/13/24 11:02 Pulse Ox 94 L 12/13/24 11:02 FiO2 Intake & Output 12/12/24 12/13/24 12/13/24 18:59 06:59 18:59 Intake Total 640 730 236 Output Total 400 600 700 Balance 240 130 -464 Weight 73.5 kg 73.5 kg Intake: IV 40 40 Invasive Line 1 20 20 Invasive Line 2 20 20 Oral 600 690 236 Output: Urine 400 600 700 Other: Voiding Method Urinal Urinal Urinal External Catheter External Catheter - Labs CBC & Chem 7: 12/10/24 05:13 12/12/24 06:36 Labs: Abnormal Lab Results - Last 24 Hours (Table) 12/13/24 Range/Units 12:01 ABG pH 7.51 H (7.35-7.45) ABG pO2 61 L (83-108) mmHg ABG HCO3 28 H (21-25) mmol/L ABG Total CO2 29 H (19-24) mmol/L ABG O2 Saturation 93.4 L (94-97) % Hemoglobin 11.1 L (13.0-17.5) gm/dL
--- NOTE | 2024-12-13 14:56 | XR ---
EXAMINATION TYPE: XR chest 1V portable DATE OF EXAM: 12/13/2024 2:42 PM COMPARISON: Chest radiographs from 12/12/2024. CLINICAL INDICATION: Male, 84 years old with history of Shortness of breath; TECHNIQUE: XR chest 1V portable Frontal view of the chest. FINDINGS: Lungs/Pleura: There is no evidence of pleural effusion, focal consolidation, or pneumothorax. Pulmonary vascularity: Unremarkable. Heart/mediastinum: Cardiomediastinal silhouette is enlarged. Atherosclerotic calcifications are seen in the aorta. Two lead cardiac conduction device overlying the left hemithorax with lead tips projec ting over the right ventricle and right atrium. Musculoskeletal: No acute osseous pathology. Other findings: None IMPRESSION: Cardiomegaly, pulmonary vascular congestion and bilateral pleural effusions. Correlate with BNP for c ongestive heart failure. [facility], , 12/13/2024 2:54 PM
--- NOTE | 2024-12-13 15:22 | P.PN ---
Subjective Progress Note Date: 12/13/24 Hospital Course 84 year old M with PMH of HTN, CAD status post CABG on 10/2024, skin CA, ascending aortic dilation presents to the ED for syncope. In the ED he underwent extensive evaluation. BP 151/65, HR 93, RR 18, 97% on 3L NC. Labs significant for WBC 10/82, RBC 3.51, Hg 11.6, Hct 35.1, MCV 100, Cl 113, bicarb 18, BUN 24, glu 173, Ca 11.6, Lactic caid 4.8-1.6, Trop 0.253, BNP 4030, alb 3.3, TSH 2.44. EKG showed sinus bradycardia with first degree AC block and RBBB. In the ED he was noted to have complete heart block with pauses up to 10 seconds. He was started on a Dopamine drip and taken to the lab technologist. Cardiac cath showed distal left main 80 to 90%, ostial LAD 90%, ostial ramus 80%, ostial circumflex 90%, 100% mid RCA stenosis with patent GOMES to LAD, SVG to ramus, SVG to PDA. TVP was placed and he was sent to the ICU. Subjective Seen this morning. Family members at bedside and was concerned about his slow speech. Is concerned if patient had a stroke and was requesting an MRI. Patient on exam did not have any focal deficits. I did also speak with the nurse who said that they had trouble getting him to the bathroom yesterday. was requesting some physical therapy. I reordered PT OT consult. Did also report patient short of breath. However was satting well on room air. Physical exam General examination - Alert and Oriented 3 in NAD Heart - + S1S2 no murmurs Lungs -crackles in bilateral lower lungs. Abdomen soft NT ND +ve BS Extremities - No edema BLOW MOLDER - Moving all 4 extremities spontaneously Psych - Calm and cooperative Assessment and plan Acute chronic diastolic heart failure: Reviewed chest x-ray that showed bilateral pleural effusions Discussed with cardiology who is recommending to switch the patient to oral Lasix 40 mg daily Based off of the chest x-ray results I will give the patient 1 more dose of IV Lasix 40 mg. Patient has been making good urine output Complete heart block: Status post permenant pacemaker 12/11. Started on Coreg 6.25 mg PO BID. Telemetry monitoring. Cardiology on board. Mild pericardial effusion Cardiology started the patient on colchicine Reviewed echocardiogram showed small pericardial effusion. Troponin elevation with history of CAD post CABG in 10/2024: Cardiac cath as above. Plavix 75 mg PO QD. ASA 81 mg PO QHS. Lipitor 40 mg PO QHS. Cardiology on board. Macrocytic anemia: Hg appears stable. No signs of acute bleeding. Monitor. HTN: Lisinopril 10 mg PO QD. Coreg as above. Aortic dilation: Outpatient follow up. BPH: Flomax 0.8 mg PO QD. Finasteride 5 mg PO QHS. Acute on chronic debility Will reconsult PT OT CODE STATUS: FULL CODE DVT Prophylaxis: Lovenox SQ GI Prophylaxis: Designated medical POA if patient is not able to make medical decisions for themselves: Anticipated ready for discharge tomorrow. Disposition will depend on PT OT recommendations. Objective - Vital Signs Vital signs: Vital Signs Temp 97.6 F 12/13/24 11:02 Pulse 68 12/13/24 13:31 Resp 22 12/13/24 11:02 BP 150/48 12/13/24 11:02 Pulse Ox 94 L 12/13/24 11:02 FiO2 Intake & Output 12/12/24 12/13/24 12/13/24 18:59 06:59 18:59 Intake Total 640 730 236 Output Total 400 600 700 Balance 240 130 -464 Weight 73.5 kg 73.5 kg Intake: IV 40 40 Invasive Line 1 20 20 Invasive Line 2 20 20 Oral 600 690 236 Output: Urine 400 600 700 Other: Voiding Method Urinal Urinal Urinal External Catheter External Catheter - Labs CBC & Chem 7: 12/10/24 05:13 12/12/24 06:36 Labs: Abnormal Lab Results - Last 24 Hours (Table) 12/13/24 Range/Units 12:01 ABG pH 7.51 H (7.35-7.45) ABG pO2 61 L (83-108) mmHg ABG HCO3 28 H (21-25) mmol/L ABG Total CO2 29 H (19-24) mmol/L ABG O2 Saturation 93.4 L (94-97) % Hemoglobin 11.1 L (13.0-17.5) gm/dL
[2024-12-13] MEDS: FUROSEMIDE 10 MG/ML 4 ML VIAL IV STA (16:06)
[2024-12-14 08:21] LABS: Basophils # (A) 0.04 10*3/uL (0.00-0.10); Basophils % (A) 0.6 %; Eosinophils # (A) 0.41 10*3/uL (0.04-0.35); Eosinophils % (A) 5.7 %; HCT 33.1 % (39.6-50.0); HGB 10.9 g/dL (13.0-17.0); Lymphocytes # (A) 1.40 10*3/uL (0.90-5.00); Lymphocytes % (A) 19.4 %; MCH 32.4 pg (27.0-32.0); MCHC 32.9 g/dL (32.0-37.0); MCV 98.5 fL (80.0-97.0); Monocytes # (A) 0.86 10*3/uL (0.20-1.00); Monocytes % (A) 11.9 %; Neutrophils # (A) 4.49 10*3/uL (1.80-7.70); Neutrophils % (A) 62.0 %; Platelet Count 143 10*3/uL (140-440); RBC 3.36 10*6/uL (4.40-5.60); RDW 13.8 % (11.5-14.5); WBC 7.23 10*3/uL (4.50-10.00)
[2024-12-14 08:32] LABS: African American GFR (CKD) >90 (>60 ml/min/1.73 sqM); Anion Gap 4 mmol/L; Blood Urea Nitrogen 28 mg/dL (9-20); Calcium 8.2 mg/dL (8.4-10.2); Carbon Dioxide 30 mmol/L (22-30); Chloride 103 mmol/L (98-107); Glucose 94 mg/dL (74-99); Magnesium 1.8 mg/dL (1.6-2.3); Non-African American GFR(CKD) 83 (>60 ml/min/1.73 sqM); Potassium 3.2 mmol/L (3.5-5.1); Sodium 137 mmol/L (137-145)
[2024-12-14] MEDS: POTASSIUM CHLORIDE ER 20 MEQ TAB.ER PO STA ×2 (08:54)
--- NOTE | 2024-12-14 14:33 | P.PN ---
Subjective Progress Note Date: 12/14/24 Hospital Course 84 year old M with PMH of HTN, CAD status post CABG on 10/2024, skin CA, ascending aortic dilation presents to the ED for syncope. In the ED he underwent extensive evaluation. BP 151/65, HR 93, RR 18, 97% on 3L NC. Labs significant for WBC 10/82, RBC 3.51, Hg 11.6, Hct 35.1, MCV 100, Cl 113, bicarb 18, BUN 24, glu 173, Ca 11.6, Lactic caid 4.8-1.6, Trop 0.253, BNP 4030, alb 3.3, TSH 2.44. EKG showed sinus bradycardia with first degree AC block and RBBB. In the ED he was noted to have complete heart block with pauses up to 10 seconds. He was started on a Dopamine drip and taken to the lab instructor. Cardiac cath showed distal left main 80 to 90%, ostial LAD 90%, ostial ramus 80%, ostial circumflex 90%, 100% mid RCA stenosis with patent GOMES to LAD, SVG to ramus, SVG to PDA. TVP was placed and he was sent to the ICU. Subjective Patient seen this morning. He denies any acute complaints to me. wanted him to stay 1 more day in the hospital. Patient was later seen by cardiology and patient told senior unix administrator that he is not ready today and would feel more comfortable going home tomorrow. Per nurse patient did work with physical therapy and walked nursing home in the hallway. I spoke with hospice case manager who arranged for a walker. Physical exam General examination - Alert and Oriented 3 in NAD Heart - + S1S2 no murmurs Lungs -crackles in bilateral lower lungs. Abdomen soft NT ND +ve BS Extremities - No edema SOUND RANGING CREWMEMBER - Moving all 4 extremities spontaneously Psych - Calm and cooperative Assessment and plan Acute chronic diastolic heart failure: Reviewed chest x-ray that showed bilateral pleural effusions Discussed with cardiology who is recommending to switch the patient to oral Lasix 40 mg daily Cardiology ordered a repeat chest x-ray. Patient has been making good urine output Complete heart block: Status post permenant pacemaker 12/11. Started on Coreg 6.25 mg PO BID. Telemetry monitoring. Cardiology on board. Mild pericardial effusion Cardiology started the patient on colchicine Reviewed echocardiogram showed small pericardial effusion. Troponin elevation with history of CAD post CABG in 10/2024: Cardiac cath as above. Plavix 75 mg PO QD. ASA 81 mg PO QHS. Lipitor 40 mg PO QHS. Cardiology on board. Macrocytic anemia: Hg appears stable. No signs of acute bleeding. Monitor. HTN: Lisinopril 10 mg PO QD. Coreg as above. Aortic dilation: Outpatient follow up. BPH: Flomax 0.4 mg PO QD. Finasteride 5 mg PO QHS. Acute on chronic debility PT OT recommended home with home care and supervision. CODE STATUS: FULL CODE DVT Prophylaxis: Lovenox SQ GI Prophylaxis: Designated medical POA if patient is not able to make medical decisions for themselves: Anticipated ready for discharge tomorrow. Objective - Vital Signs Vital signs: Vital Signs Temp 97.9 F 12/14/24 11:09 Pulse 70 12/14/24 13:07 Resp 20 12/14/24 11:09 BP 155/56 12/14/24 12:50 Pulse Ox 95 12/14/24 11:09 FiO2 Intake & Output 12/13/24 12/14/24 12/14/24 18:59 06:59 18:59 Intake Total 354 360 Output Total 1400 200 300 Balance -1046 -200 60 Weight 73.5 kg 71.9 kg Intake: Oral 354 360 Output: Urine 1400 200 300 Other: Voiding Method Urinal Urinal Urinal External Catheter - Labs CBC & Chem 7: 12/14/24 07:45 12/14/24 07:45 Labs: Abnormal Lab Results - Last 24 Hours (Table) 12/14/24 12/14/24 Range/Units 07:45 07:45 RBC 3.36 L (4.40-5.60) 10*6/uL Hgb 10.9 L (13.0-17.0) g/dL Hct 33.1 L (39.6-50.0) % MCV 98.5 H (80.0-97.0) fL MCH 32.4 H (27.0-32.0) pg Eosinophils # 0.41 H (0.04-0.35) 10*3/uL Potassium 3.2 L (3.5-5.1) mmol/L BUN 28 H (9-20) mg/dL Calcium 8.2 L (8.4-10.2) mg/dL
[2024-12-14] MEDS: FINASTERIDE 5 MG TAB PO SCH (15:13)
[2024-12-14] MEDS: TAMSULOSIN 0.4 MG CAP.ER.24H PO SCH (17:52)
--- NOTE | 2024-12-14 17:52 | P.PN ---
Subjective Progress Note Date: 12/14/24 HISTORY OF PRESENTING ILLNESS This is a pleasant 84-year-old with past medical history significant for hyp ertension, ascending aortic dilation, skin cancer and CAD status post three- vessel CABG 10/25/2024 who presents secondary to syncopal episode. Patient follows with Dr. Lindsey at [place]. He was evaluated with findings on CTA of triple-vessel disease and eventually underwent heart catheterization showing CLIENT EXECUTIVE of the RCA with collaterals as well as left main trifurcation disease. Intravascular ultrasound was performed which showed calcified left main with inability to pass catheter. Readout of 50 to 60% left main stenosis and otherwise 70% ostial calcified ramus, 90% ostial circumflex and ostial LAD 50% stenosis. He underwent SVG to PDA and SVG to ramus as well as GOMES to LAD 10/25/2024 which was fairly uneventful other than some postoperative atrial fibrillation. Patient initially presented 12/09/2024 at approximately noon secondary to a mechanical fall. He denied any actual loss of consciousness. He has had some numbness in his left leg. He was discharged home and then went to lunch and had a syncopal episode while seated where he became unresponsive. He was brought to the emergency department and found to have intermittent complete heart block with pauses up to 10 seconds with loss of consciousness witnessed by ER doctor. He denies any chest pain or pressure. He was started on a dopamine drip and did develop some nausea and vomiting. Denies any actual jaw pain or abdominal pain or diaphoresis. He had no real symptoms during his initial workup for his CAD. EKG with right bundle branch block with repeat EKG and catheterization lab showing deep T wave inversions in the inferior leads. White blood cell count 10.8, hemoglobin 11.6, creatinine 1.0, lactic acid 4.8, troponin 0.25. Progress note 12/10/2024 For concerns of sick sinus syndrome and pauses he got all transvenous pacemaker. Pacemaker is set at a basal pacing rate of 54 bpm. Patient is having intermi ttent pacing. On review of telemetry it appears that patient is having sick sinus syndrome with sinus pauses and required intermittent pacing. He had a heart catheterization with no post op complication. Heart catheterization showed patent bypass grafts 3 out of 3. 12/12/2024 Patient was seen and examined at bedside this a.m. He underwent PPM placement yesterday. No postop complication. Pacemaker interrogation today shows appropriate functioning. Chest x-ray shows small left-sided pleural effusion with mild pulmonary congestion. He received 1 dose of IV Lasix with good urine output yesterday. 12/13/2024 Seen and examined at bedside this a.m. Appears very lethargic today, left lung appears to have mild crackles and rhonchi. Responded well to IV diuretics yesterday. We obtained a chest x-ray and it showed improvement in the left lung with mild right lower lung congestion. We obtained an ABG which showed pH of 7.51, PO261, PCO2 of 35. We also obtained a procalcitonin level to make sure there is no infection 12/14/2024 Seen and examined at bedside this a.m. Still reporting to be lethargic but slightly better. Shortness of breath is better. Procalcitonin was not elevated , hemoglobin 10.9, sodium 137, potassium 3.2 PHYSICAL EXAMINATION HEENT: Head is normocephalic. Pupils are equal, round. Sclerae anicteric. Mucous membranes of the mouth are moist. No JVD. No carotid bruit. CHEST EXAMINATION: Lungs are clear to auscultation. No chest wall tenderness is noted on palpation or with deep breathing. HEART EXAMINATION: Regular rate and rhythm. S1, S2 heard. No murmurs, gallops or rub. ABDOMEN: Soft, nontender. Positive bowel sounds. EXTREMITIES: 2+ peripheral pulses, no lower extremity edema and no calf tenderness. NEUROLOGIC EXAMINATION: Patient is awake, alert and oriented x3. ASSESSMENT Syncope, likely from third-degree AV block status post PPM Mild HFpEF exacerbation NSTEMI likely type II mechanism however having some nausea and worsening T wave inversions CAD status post CABG 10/2024 Moderate aortic regurgitation, moderate tricuspid regurgitation Moderate pulmonary hypertension Hypertension Postoperative A-fib after his CABG. not on anticoagulation as per primary battery tester field. Pertinent cardiac testing TSH 0.8, NT-proBNP 4000, troponin 0.2 Echocardiogram showed preserved LVEF, small pericardial effusion, large left pleural effusion, thickened aortic valve with moderate aortic regurgitation, moderate tricuspid regurgitation, moderate pulmonary hypertension with RVSP of 50 mmHg PLAN Continue colchicine 0.6 mg daily, Lasix 40 mg daily, lisinopril 20 mg daily. Continue aspirin Lipitor Plavix, Coreg 6.25 mg twice daily Plan to do colchicine for 1 to 2 months for mild pericardial effusion in setting of post CABG Appointment has been set up device clinic and with primary battery tester field in 1 week Outpatient cardiac rehab At this time patient is stable from cardiovascular standpoint. Cardiology team will sign off. Objective - Vital Signs Vital signs: Vital Signs Temp 98.3 F 12/14/24 15:08 Pulse 71 12/14/24 15:08 Resp 20 12/14/24 15:08 BP 137/52 12/14/24 15:08 Pulse Ox 95 12/14/24 15:08 FiO2 Intake & Output 12/13/24 12/14/24 12/14/24 18:59 06:59 18:59 Intake Total 354 360 Output Total 1400 200 300 Balance -1046 -200 60 Weight 73.5 kg 71.9 kg Intake: Oral 354 360 Output: Urine 1400 200 300 Other: Voiding Method Urinal Urinal Urinal External Catheter - Labs CBC & Chem 7: 12/14/24 07:45 12/14/24 07:45 Labs: Abnormal Lab Results - Last 24 Hours (Table) 12/14/24 12/14/24 Range/Units 07:45 07:45 RBC 3.36 L (4.40-5.60) 10*6/uL Hgb 10.9 L (13.0-17.0) g/dL Hct 33.1 L (39.6-50.0) % MCV 98.5 H (80.0-97.0) fL MCH 32.4 H (27.0-32.0) pg Eosinophils # 0.41 H (0.04-0.35) 10*3/uL Potassium 3.2 L (3.5-5.1) mmol/L BUN 28 H (9-20) mg/dL Calcium 8.2 L (8.4-10.2) mg/dL
[2024-12-14] MEDS: ACETAMINOPHEN TAB 325 MG TAB PO PRN (20:20)
--- NOTE | 2024-12-15 07:01 | XR ---
Chest, 2 view. CLINICAL INDICATION: Male, 84 years old with history of Recent history of fluid overload COMPARISON: 12/13/2024 TECHNIQUE: PA and lateral views the chest are obtained. FINDINGS: There is prior CABG surgery and a 2-lead cardiac pacemaker. There is a stable small right pleural effusion. There is been mild interval decrease in the small lef t pleural effusion. Interstitial markings remain mildly prominent hilar reflecting mild pulmonary vas cular congestion or chronic interstitial changes. There is deformity of the mid right clavicle from prior trauma.. IMPRESSION: 1. Interval reduction in the small left pleural effusion. 2. stable small right pleural effusion. 3. Findings suggestive of mild CHF [facility], , 12/15/2024 6:59 AM
[2024-12-15 08:33] VITALS: BP 150/55; RESP 20; TEMP 98.2
[2024-12-15 09:51] VITALS: PULSE 70
--- NOTE | 2024-12-15 11:40 | P.DS ---
Providers Date of admission: 12/09/24 21:13 Attending physician: Aftab Rogel MD Primary care physician: Chandrakant Sutton MD Hospital Course: Discharge Diagnosis: Complete heart block status post permanent pacemaker on 12/11/2024 Acute on chronic diastolic heart failure Mild pericardial effusion Coronary disease status post CABG in 10/2024 Macrocytic anemia Hypertension Aortic dilation BPH Hospital Course: 84 year old M with PMH of HTN, CAD status post CABG on 10/2024, skin CA, ascending aortic dilation presents to the ED for syncope. In the ED he was noted to have complete heart block with pauses up to 10 seconds. He was started on a Dopamine drip and taken to the photographic laboratory technician. Cardiac cath showed distal left main 80 to 90%, ostial LAD 90%, ostial ramus 80%, ostial circumflex 90%, 100% mid RCA stenosis with patent GOMES to LAD, SVG to ramus, SVG to PDA. TVP was placed and he was sent to the ICU. Patient then had a permanent pacemaker placed on 12/11/2024. After the procedure patient did have a minor complication with acute on chronic diastolic heart failure. He was started on IV diuretics. At the time of discharge patient was weaned down to room air. Chest x-ray showed small bilateral pleural effusions that were improving. Patient's echocardiogram also showed small pericardial effusion. Cardiology started the patient on colchicine. At the time of discharge patient will be discharged on Lasix 40 mg p.o. daily with potassium chloride 10 mill equivalents daily, Coreg 6.25 mg p.o. daily, lisinopril increased to 20 mg p.o. daily. Prior to discharge patient worked with PT OT and was cleared to go home with home care and supervision. At the time of discharge patient reported that he is feeling much better and was looking forward to going home. Patient seen and examined at bedside.[] Vital signs reviewed and stable. General: [non toxic], [no distress], [appears at stated age] Derm: [warm], [dry] Head: [atraumatic], [normocephalic], [symmetric] Eyes: [EOMI], [no lid lag], [anicteric sclera] Mouth: [no lip lesion], [mucus membranes moist] Cardiovascular: [S1S2 reg], [no murmur], [positive posterior tibial pulse bilateral], Lungs: [CTA bilateral], [no rhonchi, no rales] , [no accessory muscle use] Abdominal: [soft], [ nontender to palpation], [no guarding], [no appreciable organomegaly] Ext: [no gross muscle atrophy], [no edema], [no contractures] Neuro: [ CN II-XI grossly intact], [no focal neuro deficits] Psych: [Alert], [oriented], [appropriate affect] A total of [33] minutes of time were spent preparing this complex discharge summary . Patient discharged on [12/15/2024] Patient Condition at Discharge: Fair Plan - Discharge Summary New Discharge Prescriptions: New Potassium Chloride ER [K-Dur 10] 10 meq PO DAILY 7 Days #7 tab Furosemide [Lasix] 40 mg PO DAILY 7 Days #7 tab lisinopriL [Zestril] 20 mg PO DAILY 30 Days #30 tab Colchicine [Colcrys] 0.6 mg PO DAILY 30 Days #30 each carvediloL [Coreg] 6.25 mg PO BID-W/MEALS 30 Days #60 tab Tamsulosin [Flomax] 0.4 mg PO PC-SUPPER cap Continue Clopidogrel [Plavix] 75 mg PO DAILY Finasteride [Proscar] 5 mg PO HS Rosuvastatin [Crestor] 20 mg PO HS Aspirin EC [Ecotrin Low Dose] 81 mg PO HS Discontinued lisinopriL [Zestril] 10 mg PO DAILY Metoprolol Tartrate [Lopressor] 25 mg PO BID Tamsulosin [Flomax] 0.8 mg PO DAILY Discharge Medication List Clopidogrel [Plavix] 75 mg PO DAILY 12/09/24 [History] Rosuvastatin [Crestor] 20 mg PO HS 12/09/24 [History] Aspirin EC [Ecotrin Low Dose] 81 mg PO HS 12/10/24 [History] Finasteride [Proscar] 5 mg PO HS 12/10/24 [History] Colchicine [Colcrys] 0.6 mg PO DAILY 30 Days #30 each 12/15/24 [Rx] Furosemide [Lasix] 40 mg PO DAILY 7 Days #7 tab 12/15/24 [Rx] Potassium Chloride ER [K-Dur 10] 10 meq PO DAILY 7 Days #7 tab 12/15/24 [Rx] Tamsulosin [Flomax] 0.4 mg PO PC-SUPPER cap 12/15/24 [Rx] carvediloL [Coreg] 6.25 mg PO BID-W/MEALS 30 Days #60 tab 12/15/24 [Rx] lisinopriL [Zestril] 20 mg PO DAILY 30 Days #30 tab 12/15/24 [Rx] Follow up Appointment(s)/Referral(s): Alex Ace MD [Medical Doctor] - 1 Week Chandrakant Sutton MD [Primary Care Provider] - 1-2 days Katrin Murray MD [STAFF PHYSICIAN] - 1 Week (Please schedule a sleep study with Dr. Murray.) Patient Instructions/Handouts: Heart Failure (DC), Heart Catheterization (DC), Pacemaker (DC) Activity/Diet/Wound Care/Special Instructions: [facility] Follow up with Dr. Eulogio Lindsey December 18 at 3:20 PM Please complete a sleep study outpatient with Dr. Murray. Discharge Disposition: HOME SELF-CARE Plan of Treatment: You can follow up with your advertisement distributor at [facility].
== END 2024-12-15 12:23 | disposition home or self-care (01) | DRG 242 ==
LOC: EC 19:32 → 2SICU 21:13 → 3SCARD 12-11 15:50
PROVIDERS: ADMIT Internal Medicine; ATTEND Internal Medicine
PROC: B2111ZZ Fluoroscopy of Multiple Coronary Arteries using Low Osmolar Contrast (ICD-10-PCS; 2024-12-09)
PROC: B2151ZZ Fluoroscopy of Left Heart using Low Osmolar Contrast (ICD-10-PCS; 2024-12-09)
PROC: B2131ZZ Fluoroscopy of Multiple Coronary Artery Bypass Grafts using Low Osmolar Contrast (ICD-10-PCS; 2024-12-09)
PROC: B2181ZZ Fluoroscopy of Left Internal Mammary Bypass Graft using Low Osmolar Contrast (ICD-10-PCS; 2024-12-09)
PROC: 4A023N7 Measurement of Cardiac Sampling and Pressure, Left Heart, Percutaneous Approach (ICD-10-PCS; principal; 2024-12-09 21:28)
PROC: 0JH606Z Insertion of Pacemaker, Dual Chamber into Chest Subcutaneous Tissue and Fascia, Open Approach (ICD-10-PCS; 2024-12-12)
PROC: 02H63JZ Insertion of Pacemaker Lead into Right Atrium, Percutaneous Approach (ICD-10-PCS; 2024-12-12)
PROC: 02HK3JZ Insertion of Pacemaker Lead into Right Ventricle, Percutaneous Approach (ICD-10-PCS; 2024-12-12)
DX: I44.2 Atrioventricular block, complete (principal); I21.A1 Myocardial infarction type 2; I50.33 Acute on chronic diastolic (congestive) heart failure; I11.0 Hypertensive heart disease with heart failure; I27.20 Pulmonary hypertension, unspecified; E03.9 Hypothyroidism, unspecified; I77.810 Thoracic aortic ectasia; I08.2 Rheumatic disorders of both aortic and tricuspid valves; D53.9 Nutritional anemia, unspecified; I48.91 Unspecified atrial fibrillation; I49.5 Sick sinus syndrome; I25.10 Atherosclerotic heart disease of native coronary artery without angina pectoris; N40.0 Benign prostatic hyperplasia without lower urinary tract symptoms; Z95.1 Presence of aortocoronary bypass graft; I77.819 Aortic ectasia, unspecified site; W19.XXXA Unspecified fall, initial encounter; E83.52 Hypercalcemia; Z79.02 Long term (current) use of antithrombotics/antiplatelets; Z79.82 Long term (current) use of aspirin; Z79.899 Other long term (current) drug therapy; Z85.820 Personal history of malignant melanoma of skin; Z87.891 Personal history of nicotine dependence; R09.02 Hypoxemia
CPT/HCPCS: 33208; 33210; 36415; 36600; 71045; 71046; 80048; 80053; 82805; 83605; 83735; 83880; 84100; 84145; 84443; 84484; 85025; 85610; 85730; 86850; 86900; 86901; 93005; 93306; 93459; 94760; 96365; 96368; 96375; 96376; 99291